=== PATIENT | female | born 1995 | race Caucasian/White ===

== ENCOUNTER 2017-09-05 17:41 | Emergency (ER) | payer OTHER, SELFPAY, MEDICAID ==
[2017-09-05] MEDS: FLUORESCEIN OPHTH 1 MG STRIP OS ×2 (18:15)
[2017-09-05] MEDS: TETRACAINE 0.5% OPHTH SOLN 4ML OS ×2 (18:30)
[2017-09-05] MEDS: ERYTHROMYCIN OPHTH OINT OS ×2 (19:15)
== END 2017-09-05 19:24 | disposition home or self-care (01) ==
LOC: M ED 17:41
DX: T55.1X1A Toxic effect of detergents, accidental (unintentional), initial encounter (principal); H10.212 Acute toxic conjunctivitis, left eye; F17.200 Nicotine dependence, unspecified, uncomplicated; Y92.098 Other place in other non-institutional residence as the place of occurrence of the external cause; Z91.018 Allergy to other foods; Z91.010 Allergy to peanuts; Z88.2 Allergy status to sulfonamides; Z88.8 Allergy status to other drugs, medicaments and biological substances
CPT/HCPCS: 99283

== ENCOUNTER 2017-09-16 18:44 | Emergency (ER) | payer OTHER ==
[2017-09-16] MEDS: KETOROLAC 60 MG/2 ML VIAL (J1885) IM (22:15)
== END 2017-09-16 22:51 | disposition home or self-care (01) ==
LOC: M ED 18:44
DX: S73.102A Unspecified sprain of left hip, initial encounter (principal); X50.0XXA Overexertion from strenuous movement or load, initial encounter; Y92.410 Unspecified street and highway as the place of occurrence of the external cause; F41.9 Anxiety disorder, unspecified; F33.9 Major depressive disorder, recurrent, unspecified; Z88.2 Allergy status to sulfonamides; Z88.8 Allergy status to other drugs, medicaments and biological substances; F17.210 Nicotine dependence, cigarettes, uncomplicated
CPT/HCPCS: J1885

== ENCOUNTER 2017-11-05 16:15 | Emergency (ER) | payer OTHER ==
[2017-11-05] MEDS: PANTOPRAZOLE 40MG INJ (PROTONIX) (C9113) IV (15:30)
[2017-11-05] MEDS: NS 1,000 ML IV (15:30)
[2017-11-05] MEDS: hydrOXYzine 50 MG TAB PO (17:20)
== END 2017-11-05 19:39 | disposition home or self-care (01) ==
LOC: M ED 16:15
DX: R22.0 Localized swelling, mass and lump, head (principal); T78.40XA Allergy, unspecified, initial encounter; Z91.018 Allergy to other foods; Z88.1 Allergy status to other antibiotic agents; Z88.2 Allergy status to sulfonamides; Z91.010 Allergy to peanuts; Z88.8 Allergy status to other drugs, medicaments and biological substances
CPT/HCPCS: C9113

== ENCOUNTER → 2017-11-11 | Outpatient (CLI) | payer OTHER ==
[2017-11-11 18:11] LABS: COMPLEMENT C3 114 MG/DL (90-180); COMPLEMENT C4 22.6 MG/DL (10-40); IMMUNOGLOBULIN G 818 MG/DL (681-1648); IMMUNOGLOBULIN M 86.9 MG/DL (40-230)
[2017-11-17 08:06] LABS: D001-IgE D pteronyssinus 4.69 kU/L (Class IV); E001-IgE Cat Epith/Dander 0.47 kU/L (Class I); E005-IgE Dog Dander 2.11 kU/L (Class III); F002-IgE Milk 0.11 kU/L (Class 0/I); F004-IgE Wheat 0.12 kU/L (Class 0/I); F013-IgE Peanut < 0.10 kU/L (Class 0); F014-IgE Soybean < 0.10 kU/L (Class 0); F026-IgE Pork < 0.10 kU/L (Class 0); F027-IgE Beef 0.15 kU/L (Class 0/I); F245-IgE Egg, Whole < 0.10 kU/L (Class 0); FX02-IgE Food Mix (Sea Foods) Negative (.); G002-IgE Bermuda Grass < 0.10 kU/L (Class 0); G008-IgE Kentucky Bluegrass < 0.10 kU/L (Class 0); M001-IgE Penicillium chrysogen 0.15 kU/L (Class 0/I); M002 IgE Cladosporium herbaru < 0.10 kU/L (Class 0); M003 IgE Aspergillus fumigatu 0.23 kU/L (Class 0/I); M006-IgE Alternaria alternata < 0.10 kU/L (Class 0); T001-IgE Maple/Box Elder < 0.10 kU/L (Class 0); T003-IgE Common Silver Birch < 0.10 kU/L (Class 0); T007-IgE Oak, White < 0.10 kU/L (Class 0); T008-IgE Elm, American < 0.10 kU/L (Class 0); T015-IgE Ash, White < 0.10 kU/L (Class 0); T041-IgE Hickory, White 0.19 kU/L (Class 0/I); T070-IgE White Mulberry < 0.10 kU/L (Class 0); W001-IgE Ragweed, Short < 0.10 kU/L (Class 0); W009-IgE Plantain, English 0.13 kU/L (Class 0/I); W014-IgE Pigweed, Rough < 0.10 kU/L (Class 0); W018-IgE Sheep Sorrel < 0.10 kU/L (Class 0)
[2017-11-17 08:06] LABS: ALPHA 1 ANTITRYPSIN 139 mg/dL (90-200)
== END ==
LOC: M LAB 16:46
DX: L50.8 Other urticaria (principal)
CPT/HCPCS: 82785

== ENCOUNTER → 2017-12-18 | Outpatient (CLI) | payer OTHER | LOC: M WUC 17:53 | DX: S60.221A Contusion of right hand, initial encounter (principal); X58.XXXA Exposure to other specified factors, initial encounter; Y92.9 Unspecified place or not applicable; Z87.81 Personal history of (healed) traumatic fracture | CPT/HCPCS: 73130 ==

== ENCOUNTER 2018-10-12 21:25 | Emergency (ER) | payer OTHER ==
[~2018-10-12] VITALS: Ht 172.7 cm; Wt 136.4 kg
[2018-10-12 21:25] VITALS: BP 141/91
[~2018-10-12 21:25] MED LIST: DICL75TA PO; ERYT1OIN26 OS; HYDR50TA70 PO; OMEP10CASR PO; PRED20TA PO
[2018-10-12] MEDS ORDERED: VENTAER INH (21:37)
--- NOTE | 2018-10-13 01:34 | REP ---
Clinical: Trauma with decreased range of motion . Technique: Internal rotation, external rotation, and Y view right shoulder . Findings: No acute fracture or dislocation. The acromioclavicular and glenohumeral joints are intact. No periarticular calcifications or degenerative changes are appreciated. Sub acromial space is normal. Surrounding soft tissues are unremarkable. Impression: Normal right shoulder radiographs. Electronically Signed by Phi Kerr MD 10/13/2018 01:25 A
== END 2018-10-13 00:21 | disposition left against medical advice (07) ==
LOC: M ED 21:25
DX: S49.91XA Unspecified injury of right shoulder and upper arm, initial encounter (principal); X58.XXXA Exposure to other specified factors, initial encounter; Y92.9 Unspecified place or not applicable; Y93.9 Activity, unspecified; Y99.9 Unspecified external cause status; Z53.21 Procedure and treatment not carried out due to patient leaving prior to being seen by health care provider

== ENCOUNTER 2018-10-20 18:48 | Emergency (ER) | payer OTHER ==
[~2018-10-20] VITALS: Ht 172.7 cm; Wt 134.0 kg
[~2018-10-20 18:48] MED LIST changes: +VENTAER INH
[2018-10-20 18:49] VITALS: BP 150/77
[2018-10-20] MEDS ORDERED: PRED20TA (19:02)
[2018-10-20] MEDS ORDERED: hydrOXYzine 25 MG TAB PO STA (19:30)
[2018-10-20] MEDS ORDERED: FAMOTIDINE 20 MG TAB PO ONE ×2 (19:30→20:30)
[2018-10-20] MEDS ORDERED: hydrOXYzine 50 MG TAB PO STA (20:27)
[2018-10-20] MEDS ORDERED: PEPC1TAB5 PO (20:29)
[2018-10-20] MEDS ORDERED: PRED10TA2 PO (20:30)
[2018-10-20] MEDS ORDERED: HYDR-3363 PO (20:32)
== END 2018-10-20 20:47 | disposition home or self-care (01) ==
LOC: M ED 18:48
DX: T78.40XA Allergy, unspecified, initial encounter (principal); Y92.9 Unspecified place or not applicable; Y93.9 Activity, unspecified; F41.9 Anxiety disorder, unspecified; F32.9 Major depressive disorder, single episode, unspecified; Z79.899 Other long term (current) drug therapy; Z88.6 Allergy status to analgesic agent; Z88.2 Allergy status to sulfonamides; Z88.8 Allergy status to other drugs, medicaments and biological substances; Z91.018 Allergy to other foods; Z91.010 Allergy to peanuts

== ENCOUNTER 2018-12-16 04:51 | Emergency (ER) | payer OTHER ==
[~2018-12-16] VITALS: Ht 175.3 cm; Wt 131.8 kg
[~2018-12-16 04:51] MED LIST changes: +HYDR-3363 PO; +PEPC1TAB5 PO; +PRED10TA2 PO; +PRED20TA
[2018-12-16] MEDS ORDERED: PROMETHAZINE INJ 25 MG/ML VIAL (J2550) IM ONE (05:15)
[2018-12-16 07:45] VITALS: BP 115/57
== END 2018-12-16 08:01 | disposition home or self-care (01) ==
LOC: EDBD 04:51 → M ED 04:51
DX: F10.10 Alcohol abuse, uncomplicated (principal); J45.909 Unspecified asthma, uncomplicated; F19.10 Other psychoactive substance abuse, uncomplicated; E66.9 Obesity, unspecified; Z88.1 Allergy status to other antibiotic agents; Z88.2 Allergy status to sulfonamides; Z88.8 Allergy status to other drugs, medicaments and biological substances; Z91.010 Allergy to peanuts; Z91.018 Allergy to other foods

== ENCOUNTER 2019-01-22 21:03 | Emergency (ER) | payer OTHER ==
[~2019-01-22] VITALS: Ht 175.3 cm; Wt 136.4 kg
[2019-01-22 21:37] LABS: HEMATOCRIT 46.2 % (36.0-47.0); HEMOGLOBIN 15.4 g/dl (12.0-15.5); MEAN CORPUSCULAR HEMOGLOBIN 31.8 pg (27.0-33.0); MEAN CORPUSCULAR HGB CONC 33.3 g/dl (32.0-36.5); MEAN CORPUSCULAR VOLUME 95.3 fl (80.0-96.0); PLATELET COUNT, AUTOMATED 229 10^3/uL (150-450); RED BLOOD COUNT 4.85 10^6/uL (4.00-5.40)
[2019-01-22 21:50] LABS: HCG, SERUM QUALITATIVE NEGATIVE (NEGATIVE)
[2019-01-22 21:59] LABS: ALBUMIN 3.6 GM/DL (3.2-5.2); ALT/SGPT 22 U/L (12-78); BILIRUBIN,DIRECT 0.2 MG/DL (0.0-0.2); BILIRUBIN,TOTAL 0.8 MG/DL (0.2-1.0); BLOOD UREA NITROGEN 11 MG/DL (7-18); CARBON DIOXIDE LEVEL 26 MEQ/L (21-32); CHLORIDE LEVEL 107 MEQ/L (98-107); GLOMERULAR FILTRATION RATE > 60.0 (>60); GLUCOSE, FASTING 116 MG/DL (70-100); LIPASE 169 U/L (73-393); POTASSIUM SERUM 3.9 MEQ/L (3.5-5.1); SODIUM LEVEL 141 MEQ/L (136-145); TOTAL PROTEIN 6.9 GM/DL (6.4-8.2)
[2019-01-22 22:10] LABS: BASOPHILS 1 % (0-4); EOSINOPHILS 2 % (0-5); LYMPHOCYTES 37 % (16-52); MONOCYTES 8 % (0-8); NEUTROPHILS 52 % (35-75); PLATELET ESTIMATE NORMAL (NORMAL)
[2019-01-23 00:35] LABS: CHLAMYDIA DNA AMPLIFICATION NEGATIVE (NEGATIVE); GC DNA AMPLIFICATION NEGATIVE (NEGATIVE)
[2019-01-23] MEDS ORDERED: 3 DA2CRE PV (01:11)
[2019-01-23] MEDS ORDERED: ACID1CAP5 PO (01:12)
[2019-01-23 01:20] VITALS: BP 142/85
== END 2019-01-23 01:21 | disposition home or self-care (01) ==
LOC: M ED 21:03
DX: B37.3 Candidiasis of vulva and vagina (principal); Z72.0 Tobacco use; Z88.8 Allergy status to other drugs, medicaments and biological substances; Z88.6 Allergy status to analgesic agent; Z88.2 Allergy status to sulfonamides; Z88.1 Allergy status to other antibiotic agents; Z91.010 Allergy to peanuts; Z91.018 Allergy to other foods

== ENCOUNTER 2019-02-14 02:29 | Emergency (ER) | payer OTHER ==
[~2019-02-14 02:29] MED LIST changes: +3 DA2CRE PV; +ACID1CAP5 PO
[2019-02-14 02:46] VITALS: BP 123/73
== END 2019-02-14 03:35 | disposition home or self-care (01) ==
LOC: M ED 02:29
DX: F10.129 Alcohol abuse with intoxication, unspecified (principal); Z72.0 Tobacco use; Z88.6 Allergy status to analgesic agent; Z88.2 Allergy status to sulfonamides; Z88.0 Allergy status to penicillin; Z88.8 Allergy status to other drugs, medicaments and biological substances; Z91.010 Allergy to peanuts; Z91.018 Allergy to other foods

== ENCOUNTER 2019-03-13 01:40 | Emergency (ER) | payer OTHER ==
[2019-03-13 04:24] LABS: BLOOD UREA NITROGEN 7 MG/DL (7-18); CALCIUM LEVEL 8.5 MG/DL (8.5-10.1); CARBON DIOXIDE LEVEL 22 MEQ/L (21-32); CHLORIDE LEVEL 112 MEQ/L (98-107); CREATININE FOR GFR 0.71 MG/DL (0.55-1.30); ETHYL ALCOHOL (ETHANOL) 0.106 % (0.000-0.010); GLOMERULAR FILTRATION RATE > 60.0 (>60); GLUCOSE, FASTING 109 MG/DL (70-100); POTASSIUM SERUM 3.7 MEQ/L (3.5-5.1); SODIUM LEVEL 144 MEQ/L (136-145)
[2019-03-13 04:54] VITALS: BP 98/50
== END 2019-03-13 04:56 | disposition home or self-care (01) ==
LOC: M ED 01:40
DX: F10.120 Alcohol abuse with intoxication, uncomplicated (principal); F41.9 Anxiety disorder, unspecified; Z88.2 Allergy status to sulfonamides; Z88.8 Allergy status to other drugs, medicaments and biological substances; Z88.6 Allergy status to analgesic agent; Z88.1 Allergy status to other antibiotic agents; Z91.010 Allergy to peanuts; Z91.018 Allergy to other foods
CPT/HCPCS: 36415; 80048; 99284; G0480

== ENCOUNTER → 2019-03-15 | Outpatient (CLI) | payer OTHER ==
--- NOTE | 2019-03-15 12:34 | REP ---
LEFT HAND SERIES: Four views. HISTORY: Pain. FINDINGS: Four views of the left hand demonstrate overall normal mineralization. Joint spaces are preserved. No erosive changes seen. Soft tissues are unremarkable. IMPRESSION: Negative left hand radiographs. Electronically Signed by Rebel Zepeda MD 03/15/2019 01:06 P
== END ==
LOC: M WUC 10:14
PROVIDERS: ATTEND Physician Assistant
DX: M79.642 Pain in left hand (principal)

== ENCOUNTER → 2019-04-05 | Outpatient (REF) | payer OTHER ==
[2019-04-05 21:10] LABS: CHLAMYDIA DNA AMPLIFICATION NEGATIVE (NEGATIVE); GC DNA AMPLIFICATION NEGATIVE (NEGATIVE)
== END ==
LOC: M SFHCWAGY 17:21
PROVIDERS: ATTEND Nurse Practitioner Women's Health
DX: Z11.3 Encounter for screening for infections with a predominantly sexual mode of transmission (principal)

== ENCOUNTER 2019-05-30 23:45 | Emergency (ER) | payer OTHER ==
[~2019-05-30] VITALS: Ht 177.8 cm; Wt 131.8 kg
[2019-05-30 23:48] VITALS: BP 126/92
[2019-05-30] MEDS ORDERED: HYDR-3363 (23:55)
== END 2019-05-31 00:48 | disposition left against medical advice (07) ==
LOC: M ED 23:45
DX: Z53.21 Procedure and treatment not carried out due to patient leaving prior to being seen by health care provider (principal)

== ENCOUNTER → 2019-11-03 | Outpatient (REF) | payer OTHER ==
[~2019-11-03] MED LIST changes: +HYDR-3363
[2019-11-03 21:30] LABS: CHLAMYDIA DNA AMPLIFICATION NEGATIVE (NEGATIVE); GC DNA AMPLIFICATION NEGATIVE (NEGATIVE)
== END ==
LOC: M SFHCWAGY 17:32
PROVIDERS: ATTEND Nurse Practitioner Women's Health
DX: Z11.3 Encounter for screening for infections with a predominantly sexual mode of transmission (principal)

== ENCOUNTER 2019-11-22 06:04 | Emergency (ER) | payer MEDICAID, OTHER ==
[~2019-11-22] VITALS: Ht 172.7 cm; Wt 143.2 kg
[~2019-11-22 06:04] MED LIST changes: -ERYT1OIN26 OS; +ERYT5OIN25 OS
[2019-11-22] MEDS ORDERED: NS 1,000 ML IV ONE (07:15)
[2019-11-22] MEDS ORDERED: ONDANSETRON 4MG/2ML VIAL IV ONE (07:15)
[2019-11-22 07:59] LABS: BASO # 0.1 10^3/uL (0.0-0.2); BASO % 0.5 % (0.0-1.0); EOS # 0.2 10^3/uL (0.0-0.5); EOS % 1.9 % (0.0-3.0); HEMATOCRIT 47.6 % (36.0-47.0); HEMOGLOBIN 16.2 g/dl (12.0-15.5); LYMPH # 4.5 10^3/uL (1.5-5.0); LYMPH % 35.9 % (24.0-44.0); MEAN CORPUSCULAR HEMOGLOBIN 32.1 pg (27.0-33.0); MEAN CORPUSCULAR VOLUME 94.4 fl (80.0-96.0); MONO # 0.6 10^3/uL (0.0-0.8); MONO % 4.6 % (0.0-5.0); NEUTROPHILS # 7.1 10^3/uL (1.5-8.5); NEUTROPHILS % 56.8 % (36.0-66.0); PLATELET COUNT, AUTOMATED 265 10^3/uL (150-450); RED BLOOD COUNT 5.04 10^6/uL (4.00-5.40); WHITE BLOOD COUNT 12.5 10^3/uL (4.0-10.0)
[2019-11-22] MEDS ORDERED: METOCLOPRAMIDE INJ 10MG/2ML VIAL (J2765 PER 1) IV ONE (08:15)
[2019-11-22 08:40] LABS: ALBUMIN 3.6 GM/DL (3.2-5.2); ALT/SGPT 31 U/L (12-78); BILIRUBIN,DIRECT 0.2 MG/DL (0.0-0.2); BILIRUBIN,TOTAL 0.6 MG/DL (0.2-1.0); BLOOD UREA NITROGEN 9 MG/DL (7-18); CALCIUM LEVEL 8.8 MG/DL (8.5-10.1); CARBON DIOXIDE LEVEL 25 MEQ/L (21-32); CHLORIDE LEVEL 110 MEQ/L (98-107); CREATININE FOR GFR 0.82 MG/DL (0.55-1.30); ETHYL ALCOHOL (ETHANOL) 0.189 % (0.000-0.010); GLOMERULAR FILTRATION RATE > 60.0 (>60); GLUCOSE, FASTING 114 MG/DL (70-100); LIPASE 83 U/L (73-393); POTASSIUM SERUM 3.9 MEQ/L (3.5-5.1); SODIUM LEVEL 143 MEQ/L (136-145); TOTAL PROTEIN 7.3 GM/DL (6.4-8.2)
[2019-11-22] MEDS ORDERED: AMMONIA AROMATIC INHALANT As Ordered ONE (08:41)
[2019-11-22] MEDS ORDERED: ISOVUE-370 76% 100ML VIAL As Ordered ONE (08:53)
[2019-11-22 09:40] LABS: AMPHETAMINES LEVEL URINE NEGATIVE (NEGATIVE); BARBITURATES URINE NEGATIVE (NEGATIVE); BENZODIAZEPINES URINE NEGATIVE (NEGATIVE); CANNABINOIDS URINE NEGATIVE (NEGATIVE); COCAINE METABOLITE URINE NEGATIVE (NEGATIVE); METHADONE URINE NEGATIVE (NEGATIVE); OPIATES URINE NEGATIVE (NEGATIVE); PHENCYCLIDINE URINE NEGATIVE (NEGATIVE)
--- NOTE | 2019-11-22 10:04 | REP ---
CT ABDOMEN AND PELVIS WITH IV CONTRAST: TECHNIQUE: Axial contrast enhanced images from the lung bases to the pubic symphysis using 100 mL Isovue-370 intravenous contrast material with multiplanar reformations. The visualized lung bases are clear. The liver, spleen, adrenals, pancreas and kidneys are unremarkable in appearance. Multiple gallstones are seen in a noninflamed gallbladder. There is no evidence of biliary dilatation. There is no abdominal aortic aneurysm. There is no adenopathy, free air or free fluid. No bowel wall thickening is seen. The appendix is normal. No pelvic mass is seen. Urinary bladder is not well distended and not well evaluated. IMPRESSION: Multiple gallstones seen in a noninflamed gallbladder. No acute findings. No free air or free fluid. Normal appendix. No abscess or bowel obstruction. Electronically Signed by Molina Garcia MD 11/22/2019 12:16 P
[2019-11-22 10:11] VITALS: BP 127/63
[2019-11-23] MEDS ORDERED: ALL10TAB29 PO (00:32)
[2019-11-23] MEDS ORDERED: PREVTAB2 PO (00:32)
[2019-11-23] MEDS ORDERED: OYST1TAB PO (00:32)
[2019-11-26] MEDS ORDERED: OXYC-517 PO (08:39)
== END 2019-11-22 10:21 | disposition home or self-care (01) ==
LOC: M ED 06:04
DX: M54.5 Low back pain (principal); K80.20 Calculus of gallbladder without cholecystitis without obstruction; F10.120 Alcohol abuse with intoxication, uncomplicated; R11.0 Nausea; F17.210 Nicotine dependence, cigarettes, uncomplicated
CPT/HCPCS: 74177; 80048; 80076; 80307; 83690; 84702; 85025; 96361; 96374; 99284; G0480; J2405; Q9967

== ENCOUNTER → 2019-12-14 | Outpatient (REF) | payer OTHER, MEDICAID ==
[~2019-12-14] MED LIST changes: +ALL10TAB29 PO; +OXYC-517 PO; +OYST1TAB PO; +PREVTAB2 PO
[2019-12-14 13:00] LABS: BASO % 0.4 % (0.0-1.0); EOS # 0.5 10^3/uL (0.0-0.5); EOS % 5.1 % (0.0-3.0); HEMATOCRIT 44.4 % (36.0-47.0); HEMOGLOBIN 14.8 g/dl (12.0-15.5); MEAN CORPUSCULAR HEMOGLOBIN 32.2 pg (27.0-33.0); MEAN CORPUSCULAR HGB CONC 33.3 g/dl (32.0-36.5); MEAN CORPUSCULAR VOLUME 96.5 fl (80.0-96.0); MONO # 0.7 10^3/uL (0.0-0.8); NEUTROPHILS # 3.8 10^3/uL (1.5-8.5); NEUTROPHILS % 42.3 % (36.0-66.0); PLATELET COUNT, AUTOMATED 211 10^3/uL (150-450)
[2019-12-14 13:14] LABS: ALBUMIN 3.5 GM/DL (3.2-5.2); ALT/SGPT 46 U/L (12-78); BILIRUBIN,TOTAL 0.9 MG/DL (0.2-1.0); BLOOD UREA NITROGEN 9 MG/DL (7-18); CALCIUM LEVEL 8.7 MG/DL (8.5-10.1); CARBON DIOXIDE LEVEL 27 MEQ/L (21-32); CHLORIDE LEVEL 109 MEQ/L (98-107); CHOLESTEROL LEVEL 166 MG/DL (<200); CHOLESTEROL RISK RATIO 3.952 (<5); CREATININE FOR GFR 0.95 MG/DL (0.55-1.30); FREE T4 0.96 NG/DL (0.76-1.46); GLOMERULAR FILTRATION RATE > 60.0 (>60); GLUCOSE, FASTING 86 MG/DL (70-100); HDL CHOLESTEROL 42 MG/DL (>40); LDL CHOLESTEROL 97 MG/DL (<100); NON-HDL-C 124 MG/DL; POTASSIUM SERUM 4.3 MEQ/L (3.5-5.1); SODIUM LEVEL 141 MEQ/L (136-145); TOTAL 25(OH) VITAMIN D 25.1 NG/ML (30.0-100.0); TOTAL PROTEIN 6.8 GM/DL (6.4-8.2); TRIGLYCERIDES LEVEL 134 MG/DL (<150)
== END ==
LOC: M LAB REF 12:18
PROVIDERS: ATTEND Physician Assistant
DX: Z90.49 Acquired absence of other specified parts of digestive tract (principal); F41.1 Generalized anxiety disorder; E55.9 Vitamin D deficiency, unspecified; E66.9 Obesity, unspecified; R73.9 Hyperglycemia, unspecified; K21.9 Gastro-esophageal reflux disease without esophagitis; J45.909 Unspecified asthma, uncomplicated

== ENCOUNTER 2020-01-23 03:19 | Emergency (ER) | payer MEDICAID, OTHER ==
[~2020-01-23] VITALS: Ht 172.7 cm; Wt 141.4 kg
[~2020-01-23 03:19] MED LIST changes: -ALL10TAB29 PO; +CETI-24 PO
[2020-01-23] MEDS ORDERED: methylPREDNISolone 125MG 2ML VIAL IM ONE (04:15)
[2020-01-23] MEDS ORDERED: GI COCKTAIL 50ML BTL(HYOSCYAMINE/MAALOX/LIDOCAINE VISCOUS)(1:3:1) PO ONE (04:15)
[2020-01-23 04:33] VITALS: BP 129/69
== END 2020-01-23 04:38 | disposition home or self-care (01) ==
LOC: M ED 03:19
DX: L50.9 Urticaria, unspecified (principal); K30 Functional dyspepsia; J45.909 Unspecified asthma, uncomplicated; F17.200 Nicotine dependence, unspecified, uncomplicated; Z88.2 Allergy status to sulfonamides; Z88.6 Allergy status to analgesic agent; Z88.1 Allergy status to other antibiotic agents; Z88.0 Allergy status to penicillin; Z88.8 Allergy status to other drugs, medicaments and biological substances; Z91.040 Latex allergy status; Z91.010 Allergy to peanuts; Z91.018 Allergy to other foods; Z79.899 Other long term (current) drug therapy
CPT/HCPCS: 96372; 99284; J2930

== ENCOUNTER → 2020-03-22 | Outpatient (REF) | payer OTHER ==
[~2020-03-22] MED LIST changes: +ESTA0.25 PO; +NEXP1IMP SC; +PROBCAP14 PO
== END ==
LOC: M WUC 12:33
PROVIDERS: ATTEND Physician Assistant
DX: J02.9 Acute pharyngitis, unspecified (principal)

== ENCOUNTER 2020-05-18 10:00 | Inpatient (IN) | payer OTHER ==
[~2020-05-18] VITALS: Ht 172.7 cm; Wt 137.3 kg
[~2020-05-18 10:00] MED LIST changes: -ESTA0.25 PO; -NEXP1IMP SC; -PROBCAP14 PO
[2020-05-18] MEDS ORDERED: PROBCAP14 PO (10:12)
[2020-05-18] MEDS ORDERED: NEXP1IMP SC (10:12)
[2020-05-18 11:32] LABS: BASO % 0.3 % (0.0-1.0); EOS # 0.3 10^3/uL (0.0-0.5); EOS % 2.5 % (0.0-3.0); HEMATOCRIT 48.1 % (36.0-47.0); HEMOGLOBIN 15.1 g/dl (12.0-15.5); LYMPH # 2.8 10^3/uL (1.5-5.0); LYMPH % 26.2 % (24.0-44.0); MEAN CORPUSCULAR HEMOGLOBIN 30.2 pg (27.0-33.0); MEAN CORPUSCULAR HGB CONC 31.4 g/dl (32.0-36.5); MEAN CORPUSCULAR VOLUME 96.2 fl (80.0-96.0); MONO # 0.7 10^3/uL (0.0-0.8); MONO % 6.7 % (0.0-5.0); NEUTROPHILS # 6.7 10^3/uL (1.5-8.5); PLATELET COUNT, AUTOMATED 246 10^3/uL (150-450); WHITE BLOOD COUNT 10.5 10^3/uL (4.0-10.0)
[2020-05-18] MEDS ORDERED: ISOVUE-370 76% 100ML VIAL As Ordered ONE (11:48)
--- NOTE | 2020-05-18 12:29 | REP ---
INDICATION: R upper cheek pain/swelling/dc after piercings. COMPARISON: None. TECHNIQUE: The patient was apparently unable to remove facial jewelry. Helical scanning is acquired following intravenous contrast, 75 mL of Isovue 370. An opaque BB is fixed to the skin at the superior margin of the area of interest in the right malar and periorbital region. FINDINGS: This patient has multiple sites of facial jewelry including right nares, lingual, bilateral lips jewelry and dermal posts are seen in the right male are soft tissues. There is spray artifact from jury in both ear pannus as well. 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 I believe this vessel is visible in retrospect on the prior MRI study from 2012. Otherwise there is no intracranial abnormality. The paranasal sinuses are clear. No intraorbital fluid collection or mass is seen. The deep facial soft tissues are unremarkable. Tonsillar and peritonsillar soft tissues are unremarkable. Parotid glands are normal and symmetric. There is a mildly prominent anterior cervical lymph node on the right measuring 1.4 by 1.4 by 2.3 cm. There is a lymph node at the angle of the mandible with cysts show 7 mm short axis dimension. In the region of the dermal post piercings in the right cheek at the level of the anterior margin of the right zygoma, there is subdermal soft tissue edema consistent with cellulitis. No abscess is appreciated. No soft tissue gas is seen. Exam is otherwise unremarkable IMPRESSION: 1. Cellulitis pattern around the dermal piercings in the right cheek at the level of the zygomatic arch. No abscess seen. 2. 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 <Electronically signed by Idris Zepeda > 05/18/20 [id number]
[2020-05-18] MEDS ORDERED: LIDOCAINE W/EPINEPHRINE 1% 20ML VIAL INFIL ONE (13:30)
[2020-05-18] MEDS ORDERED: HYDR-3363 PO (14:00)
[2020-05-18] MEDS ORDERED: CLINDAMYCIN 600 MG in IV 1 EA IV ONE (14:00)
[2020-05-18] MEDS ORDERED: ESTA0.25 PO (14:00)
[2020-05-18] MEDS ORDERED: ACETAMINOPHEN TAB 650MG DOSE (2X325MG) PO PRN (14:45)
--- NOTE | 2020-05-18 14:53 | HPEPDOC ---
General Date of Admission 05/18/20 Date of Service: May 18, 2020 Chief Complaint The patient is a 24-year-old female admitted with a reason for visit of Eye Problem. Source: Patient Exam Limitations: No limitations Timing/Duration: Day(s) Severity: Moderate History of Present Illness Patient 24 years old female with past medical history of posttraumatic stress disorder, borderline personality disorder presented hospital with right facial swelling. Patient stated that 3 days ago she started feeling swollen cheek there she has piercing. She stated that the swelling has been progressively increased and now when she moves her right eyeball she has a painful feeling. In ER CT head was done and showed Cellulitis pattern around the dermal piercing in the right cheek at the level of the zygomatic arch. No abscess seen. Home Medications Scheduled Calcium Carbonate (Calcium) 500 Mg Tablet, 500 MG PO DAILY, (Reported) Etonogestrel (Nexplanon) 68 Mg Implant, 68 MG SC ASDIRECTED, (Reported) INSERTED OCTOBER 2019 Hydroxyzine HCl (Hydroxyzine HCl) 25 Mg Tablet, 25 MG PO DAILY, (Reported) Lactobacillus Acidophilus (Probiotic) 1 Each Capsule, 1 CAP PO DAILY, (Reported) Norgestimate-Ethinyl Estradiol (Estarylla 0.25-0.035 mg Tablet) 1 Each Tablet, 1 TAB PO DAILY, (Reported) Allergies Coded Allergies: Peanut (Verified Allergy, Severe, anaphylaxis, 05/18/20) acetaminophen (Verified Allergy, Severe, HIVES AND THROAT SWELLING, 05/18/20) aspirin (Verified Allergy, Severe, anaphylaxis, 05/18/20) coconut (Verified Allergy, Severe, anaphylaxis, 05/18/20) NSAIDS (Non-Steroidal Anti-Inflamma (Verified Allergy, Intermediate, hives, 05/18/20) Sulfa (Sulfonamide Antibiotics) (Verified Allergy, Intermediate, hives, 05/18/20) diphenhydramine (Verified Allergy, Intermediate, hives, 05/18/20) latex (Verified Allergy, Intermediate, HIVES, 05/18/20) naproxen (Verified Allergy, Intermediate, hives, 05/18/20) amoxicillin (Verified Allergy, Unknown, 05/18/20) doxycycline (Verified Allergy, Unknown, 05/18/20) Past Medical History Medical History posttraumatic stress disorder, borderline personality disorder Surgical History Cholecystectomy Family History I personally reviewed family history and found not pertinent Social History * Smoker: current smoker Alcohol: Denies Drugs: denies A-FIB/CHADSVASC A-FIB History Current/History of A-Fib/PAF?: No Current PO Anticoag Therapy: No Review of Systems Constitutional: Denies: Chills Eyes: Reports: Pain; Denies: Vision change ENT: Denies: Head Aches Skin: Reports: Lesions (right cheek cellulitis); Denies: Rash Pulmonary: Denies: Dyspnea Cardiovascular: Denies: Chest Pain Gastrointestinal: Denies: Nausea Genitourinary: Denies: Dysuria, Frequency Hematologic: Denies: Bruising, Bleeding Excessively Endocrine: Denies: Polydipsia, Polyphagia Musculoskeletal: Denies: Neck Pain Neurological: Denies: Weakness Psych: Reports: Mood Normal Physical Examination General Exam: Positive: Alert, Cooperative Eye Exam: Positive: PERRLA ENT Exam: Positive: Atraumatic, Other ENT (Cellulitis over right zygomatic bone) Neck Exam: Positive: Supple; Negative: JVD Chest Exam: Positive: Clear to auscultation Heart Exam: Positive: Rate Normal Telemetry: Positive: No significant arrhythmia Abdomen Exam: Positive: Normal bowel sounds Extremity Exam: Negative: Clubbing, Cyanosis Skin Exam: Positive: Nl turgor and temperature Neuro Exam: Positive: Normal Gait Psych Exam: Positive: Mental status NL Vital Signs Vital Signs Date Time Temp Pulse Resp B/P (MAP) Pulse Ox O2 Delivery O2 Flow Rate FiO2 05/18/20 14:21 98.2 60 16 127/76 (93) 05/18/20 10:01 99 Room Air Laboratory Data Labs 24H Laboratory Tests 2 05/18/20 11:14: Immature Granulocyte % (Auto) 0.3, Neutrophils (%) (Auto) 64.0, Lymphocytes (%) (Auto) 26.2, Monocytes (%) (Auto) 6.7H, Eosinophils (%) (Auto) 2.5, Basophils (%) (Auto) 0.3, Neutrophils # (Auto) 6.7, Lymphocytes # (Auto) 2.8, Monocytes # (Auto) 0.7, Eosinophils # (Auto) 0.3, Basophils # (Auto) 0.0, Nucleated Red Blood Cells % (auto) 0.0 05/18/20 11:25: POC Glucose (Misc Panel) 84, POC Sodium (Misc Panel) 137, POC Potassium (Misc Panel) 4.3, POC Chloride (Misc Panel) 104, POC Total CO2 (Misc Panel) 27.0, POC Blood Urea Nitrogen (Misc Panel 8, POC Ionized Calcium (Misc Panel) 4.4L, POC Creatinine (Misc Panel) 1.0, POC Hematocrit (Misc Panel) 48.0 05/18/20 11:29: POC Beta HCG, Quantitative < 5.0 CBC/BMP Laboratory Tests 05/18/20 11:14 Microbiology Microbiology 05/18/20 Blood Culture, Received Pending 05/18/20 Blood Culture, Received Pending Assessment/Plan Patient 24 years old female with past medical history of posttraumatic stress disorder, borderline personality disorder presented hospital with right facial swelling. Patient stated that 3 days ago she started feeling swollen cheek there she has piercing. She stated that the swelling has been progressively increased and now when she moves her right eyeball she has a painful feeling. In ER CT head was done and showed Cellulitis pattern around the dermal piercing in the right cheek at the level of the zygomatic arch. No abscess seen. Problems (1) Cellulitis Status: Acute Problem Text: There is concern for orbital cellulitis given painful lateral movement of the eyeball. I talked to deportation officer Dr. Serra by phone, he recommended to monitor v isual acuity, pupillary reaction to light vestibular signs (problem with balance, dizziness, vertigo) or increased pain. If cellulitis progress and patient develop aforementioned symptoms patient will need urgent transfer to upper level facility Continue Clindamycin IV Plan / VTE VTE Prophylaxis Ordered?: No VTE Exclusion Mechanical Proph: Low Risk for VTE BRIGITTE GOTTLIEB DO May 18, 2020 14:53
[2020-05-18 18:10] VITALS: BP 130/80
[2020-05-18] MEDS: CLINDAMYCIN 600 MG in IV 1 EA IV SCH (21:24)
[2020-05-18 22:00] VITALS: BP 114/64
[2020-05-19] MEDS: CLINDAMYCIN 600 MG in IV 1 EA IV SCH ×3 (05:02→21:02)
[2020-05-19] MEDS ORDERED: ONDANSETRON 4MG/2ML VIAL IV PRN (05:15)
[2020-05-19] MEDS ORDERED: MORPHINE 2 MG/ML 1ML VIAL (J2270) IV ONE (05:15)
[2020-05-19 05:45] VITALS: BP 140/72
[2020-05-19 06:00] VITALS: BP 116/58
[2020-05-19] MEDS ORDERED: SIMETHICONE 80 MG CHEW TAB PO PRN (06:00)
[2020-05-19 07:20] LABS: HEMATOCRIT 44.5 % (36.0-47.0); HEMOGLOBIN 14.1 g/dl (12.0-15.5); MEAN CORPUSCULAR HEMOGLOBIN 30.1 pg (27.0-33.0); MEAN CORPUSCULAR HGB CONC 31.7 g/dl (32.0-36.5); MEAN CORPUSCULAR VOLUME 95.1 fl (80.0-96.0); PLATELET COUNT, AUTOMATED 242 10^3/uL (150-450); RED BLOOD COUNT 4.68 10^6/uL (4.00-5.40); WHITE BLOOD COUNT 14.1 10^3/uL (4.0-10.0)
[2020-05-19 07:40] LABS: BLOOD UREA NITROGEN 10 MG/DL (7-18); CALCIUM LEVEL 9.1 MG/DL (8.5-10.1); CARBON DIOXIDE LEVEL 23 MEQ/L (21-32); CHLORIDE LEVEL 108 MEQ/L (98-107); CREATININE FOR GFR 0.99 MG/DL (0.55-1.30); GLOMERULAR FILTRATION RATE > 60.0 (>60); GLUCOSE, FASTING 91 MG/DL (70-100); MAGNESIUM LEVEL 2.1 MG/DL (1.8-2.4); POTASSIUM SERUM 4.4 MEQ/L (3.5-5.1); SODIUM LEVEL 139 MEQ/L (136-145)
[2020-05-19] MEDS: hydrOXYzine 25 MG TAB PO SCH (09:22)
--- NOTE | 2020-05-19 09:41 | IPNPDOC ---
Text Note Date of Service The patient was seen on 05/19/20. NOTE Subjective: Patient stated that she feels better today, right facial swelling subsided. Objective: GENERAL APPEARANCE: NAD HEENT: no scleral icterus, no JVD, EOMI, multiple face piercing. Area of inflammation over the right zygomatic bone CARDIOVASCULAR: S1S2 LUNGS: CTA ABDOMEN: soft & not tender w palpitation MUSCULOSKELETAL: no cyanosis, no swelling INTEGUMENT: no generalized palor NEUROLOGICAL: cranial nerve function from 2-12 intact intact, follows commands, speech not dysarthric Assessment/Plan Patient 24 years old female with past medical history of posttraumatic stress disorder, borderline personality disorder presented hospital with right facial swelling. Patient stated that 3 days ago she started feeling swollen cheek there she has piercing. She stated that the swelling has been progressively increased and now when she moves her right eyeball she has a painful feeling. In ER CT head was done and showed Cellulitis pattern around the dermal piercing in the right cheek at the level of the zygomatic arch. No abscess seen. Problems (1) Cellulitis Improved painful lateral movement of the eyeball resolved Yesterday I talked to podiatrist Dr. Serra by phone, he recommended to monitor visual acuity, pupillary reaction to light vestibular signs (problem with balance, dizziness, vertigo) or increased pain. If cellulitis progress and patient develop aforementioned symptoms patient will need urgent transfer to upper level facility Continue Clindamycin IV VS,Fishbone, I+O VS, Fishbone, I+O Laboratory Tests 05/18/20 11:14 05/19/20 06:11 Vital Signs Date Time Temp Pulse Resp B/P (MAP) Pulse Ox O2 Delivery O2 Flow Rate FiO2 05/19/20 06:00 98.5 63 16 116/58 (77) 98 Room Air I&O- Last 24 Hours up to 6 AM 05/19/20 06:00 Intake Total 1600 ml Balance 1600 ml BRIGITTE GOTTLIEB DO May 19, 2020 09:40
[2020-05-19 15:00] VITALS: BP 112/70
[2020-05-19 22:00] VITALS: BP 133/63
[2020-05-20] MEDS: CLINDAMYCIN 600 MG in IV 1 EA IV SCH (05:24)
[2020-05-20 06:00] VITALS: BP 114/58
[2020-05-20 08:12] LABS: BASO % 0.3 % (0.0-1.0); EOS # 0.4 10^3/uL (0.0-0.5); EOS % 3.6 % (0.0-3.0); HEMATOCRIT 41.6 % (36.0-47.0); HEMOGLOBIN 13.2 g/dl (12.0-15.5); LYMPH # 3.8 10^3/uL (1.5-5.0); LYMPH % 38.8 % (24.0-44.0); MEAN CORPUSCULAR HEMOGLOBIN 30.6 pg (27.0-33.0); MEAN CORPUSCULAR HGB CONC 31.7 g/dl (32.0-36.5); MEAN CORPUSCULAR VOLUME 96.3 fl (80.0-96.0); MONO # 0.7 10^3/uL (0.0-0.8); MONO % 7.5 % (0.0-5.0); NEUTROPHILS # 4.9 10^3/uL (1.5-8.5); NEUTROPHILS % 49.6 % (36.0-66.0); PLATELET COUNT, AUTOMATED 195 10^3/uL (150-450); RED BLOOD COUNT 4.32 10^6/uL (4.00-5.40); WHITE BLOOD COUNT 9.8 10^3/uL (4.0-10.0)
[2020-05-20] MEDS: hydrOXYzine 25 MG TAB PO SCH (08:46)
[2020-05-20 10:06] LABS: BLOOD UREA NITROGEN 12 MG/DL (7-18); CALCIUM LEVEL 8.3 MG/DL (8.5-10.1); CARBON DIOXIDE LEVEL 24 MEQ/L (21-32); CHLORIDE LEVEL 111 MEQ/L (98-107); CREATININE FOR GFR 0.91 MG/DL (0.55-1.30); GLOMERULAR FILTRATION RATE > 60.0 (>60); GLUCOSE, FASTING 87 MG/DL (70-100); POTASSIUM SERUM 4.4 MEQ/L (3.5-5.1); SODIUM LEVEL 140 MEQ/L (136-145)
[2020-05-20] MEDS ORDERED: CLEO300C2 PO (11:06)
--- NOTE | 2020-05-20 11:23 | DS.PDOC ---
Discharge Summary General Date of Admission May 18, 2020 at 14:37 Date of Discharge 05/20/20 Discharge Summary PROCEDURES PERFORMED DURING STAY: [None]. DISCHARGE DIAGNOSES: Facial cellulitis related to piercing SECONDARY DIAGNOSIS: PTSD Borderline personality disorder COMPLICATIONS/CHIEF COMPLAINT: Cellulitis. HOSPITAL COURSE: Patient 24 years old female with past medical history of posttraumatic stress disorder, borderline personality disorder presented hospital with right facial swelling. Patient stated that 3 days prior to admission she started feeling swollen cheek where she has piercing. In ER CT head was done and showed Cellulitis pattern around the dermal piercing in the right cheek at the level of the zygomatic arch. No abscess seen. She was started on clindamycin. She responded well to the antibiotics with decrease in inflammation and swelling. The area around the piercings on the right zygomatic bone still a little inflamed and one of the piercings is embedded into the skin which will need to come out. Will refer to Plastic surgery for removal of the piercings. DISCHARGE MEDICATIONS: Please see below. ALLERGIES: Please see below. PHYSICAL EXAMINATION ON DISCHARGE: VITAL SIGNS: Please see below. GENERAL APPEARANCE: NAD HEENT: no scleral icterus, EOMI, multiple face piercing. Area of inflammation over the right zygomatic bone Neck: no JVD, CARDIOVASCULAR: S1S2 LUNGS: Clear to auscultation. ABDOMEN: soft & not tender with palpitation, normal bowel sounds Extremities: No edema. NEUROLOGICAL: cranial nerve function from 2-12 intact intact, No focal neurodeficits. LABORATORY DATA: Please see below. ACTIVITY: [As tolerated]. DIET: Regular DISCHARGE PLAN: Home DISCHARGE INSTRUCTIONS: Referral to Dr Chun Follow up with PMD in 1 week DISCHARGE CONDITION: [Stable]. TIME SPENT ON DISCHARGE: 35 minutes. Vital Signs/I&Os Vital Signs Date Time Temp Pulse Resp B/P (MAP) Pulse Ox O2 Delivery O2 Flow Rate FiO2 05/20/20 06:00 97.7 62 16 114/58 (76) 100 Room Air I&O- Last 24 Hours up to 6 AM 05/20/20 06:00 Intake Total 700 ml Balance 700 ml Laboratory Data Labs 24H Laboratory Tests 2 05/20/20 07:59: Immature Granulocyte % (Auto) 0.2, Neutrophils (%) (Auto) 49.6, Lymphocytes (%) (Auto) 38.8, Monocytes (%) (Auto) 7.5H, Eosinophils (%) (Auto) 3.6H, Basophils (%) (Auto) 0.3, Neutrophils # (Auto) 4.9, Lymphocytes # (Auto) 3.8, Monocytes # (Auto) 0.7, Eosinophils # (Auto) 0.4, Basophils # (Auto) 0.0, Nucleated Red Blood Cells % (auto) 0.0, Anion Gap 5L, Glomerular Filtration Rate > 60.0, Calcium Level 8.3L CBC/BMP Laboratory Tests 05/20/20 07:59 Microbiology Microbiology 05/18/20 Blood Culture - Preliminary, Resulted No growth after 24 hours . All specim... 05/18/20 Blood Culture - Preliminary, Resulted No growth after 24 hours . All specim... Discharge Medications Scheduled Calcium Carbonate (Calcium) 500 Mg Tablet, 500 MG PO DAILY, (Reported) Clindamycin Hcl (Cleocin HCl) 300 Mg Capsule, 300 MG PO QID Etonogestrel (Nexplanon) 68 Mg Implant, 68 MG SC ASDIRECTED, (Reported) INSERTED OCTOBER 2019 Hydroxyzine HCl (Hydroxyzine HCl) 25 Mg Tablet, 25 MG PO DAILY, (Reported) Lactobacillus Acidophilus (Probiotic) 1 Each Capsule, 1 CAP PO DAILY, (Reported) Norgestimate-Ethinyl Estradiol (Estarylla 0.25-0.035 mg Tablet) 1 Each Tablet, 1 TAB PO DAILY, (Reported) Allergies Coded Allergies: Peanut (Verified Allergy, Severe, anaphylaxis, 05/18/20) acetaminophen (Verified Allergy, Severe, HIVES AND THROAT SWELLING, 05/18/20) aspirin (Verified Allergy, Severe, anaphylaxis, 05/18/20) coconut (Verified Allergy, Severe, anaphylaxis, 05/18/20) NSAIDS (Non-Steroidal Anti-Inflamma (Verified Allergy, Intermediate, hives, 05/18/20) Sulfa (Sulfonamide Antibiotics) (Verified Allergy, Intermediate, hives, 05/18/20) diphenhydramine (Verified Allergy, Intermediate, hives, 05/18/20) latex (Verified Allergy, Intermediate, HIVES, 05/18/20) naproxen (Verified Allergy, Intermediate, hives, 05/18/20) amoxicillin (Verified Allergy, Unknown, 05/18/20) doxycycline (Verified Allergy, Unknown, 05/18/20) ELA CANO MD May 20, 2020 11:23
== END 2020-05-20 12:37 | disposition home or self-care (01) | DRG 383 ==
LOC: M ED 10:00 → M ED INP 14:37 → ENRESERV 15:09 → M MSPAV 18:13
PROVIDERS: ADMIT Internal Medicine; ATTEND Internal Medicine Nephrology
DX: L03.211 Cellulitis of face (principal); F60.3 Borderline personality disorder; F43.10 Post-traumatic stress disorder, unspecified; F17.200 Nicotine dependence, unspecified, uncomplicated; Z79.899 Other long term (current) drug therapy; Z88.1 Allergy status to other antibiotic agents; Z88.0 Allergy status to penicillin; Z88.2 Allergy status to sulfonamides; Z88.6 Allergy status to analgesic agent; Z88.8 Allergy status to other drugs, medicaments and biological substances; Z91.040 Latex allergy status; Z91.010 Allergy to peanuts; Z91.018 Allergy to other foods; Z20.828 Contact with and (suspected) exposure to other viral communicable diseases

== ENCOUNTER → 2020-06-02 | Outpatient (CLI) | payer OTHER ==
[~2020-06-02] MED LIST changes: +CLEO300C2 PO; +CLIN150C14 PO; +DIFL150T PO; +ESTA0.25 PO; +NEXP1IMP SC; +PROBCAP14 PO
== END ==
LOC: M LABSMTC 09:03
PROVIDERS: ATTEND Anesthesiology
DX: Z01.812 Encounter for preprocedural laboratory examination (principal); Z20.828 Contact with and (suspected) exposure to other viral communicable diseases

== ENCOUNTER 2020-06-05 06:15 | Day surgery (SDC) | payer OTHER ==
[~2020-06-05] VITALS: Ht 172.7 cm; Wt 140.6 kg
[~2020-06-05 06:15] MED LIST changes: -CLIN150C14 PO; -DIFL150T PO
[2020-06-05 06:51] LABS: HEMOGLOBIN 13.5 g/dl (12.0-15.5); MEAN CORPUSCULAR HEMOGLOBIN 30.1 pg (27.0-33.0); MEAN CORPUSCULAR HGB CONC 31.4 g/dl (32.0-36.5); MEAN CORPUSCULAR VOLUME 95.8 fl (80.0-96.0); PLATELET COUNT, AUTOMATED 206 10^3/uL (150-450); RED BLOOD COUNT 4.49 10^6/uL (4.00-5.40); WHITE BLOOD COUNT 9.9 10^3/uL (4.0-10.0)
[2020-06-05] MEDS ORDERED: CIPROFLOXACIN 400 MG in IV 1 EA IV ONE (07:00)
[2020-06-05] MEDS ORDERED: LR 1,000 ML IV ONE (07:00)
[2020-06-05] MEDS ORDERED: POVIDONE-IODINE 5% OPHTH PREP SOL 30ML As Ordered ONE (07:17)
[2020-06-05] MEDS ORDERED: POLYSPORIN OPHTH OINT 3.5 GM As Ordered ONE (07:19)
[2020-06-05] MEDS ORDERED: CLINDAMYCIN 600 MG/50 ML PREMIX BAG As Ordered ONE (07:20)
[2020-06-05] MEDS ORDERED: propofoL 200 MG/20 ML VIAL As Ordered ONE (07:20)
[2020-06-05] MEDS ORDERED: LIDOCAINE 2% 100MG/5ML SDV (FOR ANES.) As Ordered ONE (07:20)
[2020-06-05] MEDS ORDERED: ONDANSETRON 4MG/2ML VIAL As Ordered ONE (07:20)
[2020-06-05] MEDS ORDERED: fentaNYL 100 MCG/2 ML INJECTION (J3010) As Ordered ONE ×2 (07:21→07:54)
[2020-06-05] MEDS ORDERED: MIDAZOLAM INJ 2MG/2ML VIAL (J2250 PER 1MG) As Ordered ONE (07:21)
[2020-06-05] MEDS ORDERED: dexameTHASONE 4 MG/ML 1ML VIAL (J1100 PER 1MG) As Ordered ONE (07:21)
[2020-06-05] MEDS ORDERED: LIDOCAINE 2% W/EPINEPHRINE 20ML VIAL **PRES FREE As Ordered ONE (07:24)
[2020-06-05] MEDS ORDERED: CLINDAMYCIN 600 MG in IV 1 EA IV ONE (07:30)
[2020-06-05] MEDS ORDERED: METOCLOPRAMIDE INJ 10MG/2ML VIAL (J2765 PER 1) As Ordered ONE (08:21)
--- NOTE | 2020-06-05 08:24 | POST-OPPD ---
Postoperative Procedure Note Date Of Procedure: Jun 05, 2020 PREOPERATIVE DIAGNOSIS: Right cheek foreign body POSTOPERATIVE DIAGNOSIS: same FINDINGS: two adjoint body piercing PROCEDURE: Removal foreign body right cheek SURGEON: Dr Sibley DROP BOARD MAN: Dr Scruggs ANESTHESIA: General SPECIMENS: Foreign body ESTIMATED BLOOD LOSS: 1 cc REPLACED: none DRAINS: none COMPLICATIONS: none POSTOPERATIVE CONDITION: stable [id number] CYNDI SIBLEY DO Jun 05, 2020 08:24
[2020-06-05] MEDS ORDERED: CLIN150C14 PO (08:30)
--- NOTE | 2020-06-05 08:30 | REP ---
INDICATION: REMOVAL FOREIGN BODY, RIGHT CHEEK. COMPARISON: None. TECHNIQUE: Intraoperative fluoroscopic imaging using portable C-arm technique. FINDINGS: Spot fluoroscopic images of the face in AP and oblique views demonstrating endotracheal tube. No further obvious foreign body identified on current images. Total fluoroscopic time used 3.3 seconds. IMPRESSION: No significant metallic foreign body identified <Electronically signed by Phi Kerr > 06/05/20 [id number]
[2020-06-05] MEDS ORDERED: DIFL150T PO (08:34)
[2020-06-05] MEDS ORDERED: HYDROMORPHONE HCL 0.5 MG/ 0.5 ML SYRINGE (J1170 PER 1) IV PRN (09:00)
[2020-06-05] MEDS ORDERED: fentaNYL 100 MCG/2 ML INJECTION (J3010) IV PRN (09:00)
[2020-06-05] MEDS ORDERED: oxyCODONE 5MG TAB PO PRN (09:00)
[2020-06-05] MEDS ORDERED: ONDANSETRON 4MG/2ML VIAL IV PRN (09:00)
[2020-06-05] MEDS ORDERED: LR 1,000 ML IV SCH (09:00)
[2020-06-05 09:52] VITALS: BP 129/81
--- NOTE | 2020-06-06 14:22 | RO ---
OPERATIVE NOTE DATE OF OPERATION: 06/05/2020 PREOPERATIVE DIAGNOSIS: Right cheek foreign body. POSTOPERATIVE DIAGNOSIS: Right cheek foreign body. FINDINGS: Two adjacent adjoined by the piercings. PROCEDURE: Removal of foreign body right cheek. ATTENDING SURGEON: Gauri Chun DO DRIVER EDUCATION INSTRUCTOR: Dr. Scruggs ANESTHESIA: General. SPECIMEN SENT: Foreign body. BLOOD LOSS: 1 mL. No replacement. DRAINS: None. PROCEDURE: This is a 24-year-old female who had history of recent facial cellulitis due to her piercings that she has on her right cheek which are subdermally placed. The patient has completed her antibiotic course and she is markedly improved. There was no abscess. CT was previously done in the hospital. The patient was scheduled to remove her hardware. Risks and benefits and alternatives discussed with the patient in detail. She wishes to proceed. We identified previous x-rays, there are two plates under the skin which are catching on each other so we had C-arm present in the room. After general anesthesia was induced she was prepped and draped in usual sterile fashion. We made a small stab incision along the spot of her piercing and blunt dissection carried out, we were able to take out the metal footprint of the piercing and it was carefully removed from its location. We had to make a separate stab incision along the spot of the second foreign body piercing and the second footplate was removed through that small incision. Wound was irrigated with Bacitracin irrigation and edges approximated with 5-0 Monocryl sutures. We used C-arm to confirm that there was no residual foreign body was left in place. Bacitracin ointment and a Band-Aid were applied. The patient was extubated in the operating room without any difficulty and transferred to the recovery room in stable condition.
== END 2020-06-05 09:52 | disposition home or self-care (01) ==
LOC: M SDC 06:15
PROVIDERS: ATTEND Plastic Surgery Surgery of the Hand
DX: L03.211 Cellulitis of face (principal); S00.85XA Superficial foreign body of other part of head, initial encounter; K21.9 Gastro-esophageal reflux disease without esophagitis; F41.9 Anxiety disorder, unspecified; F17.218 Nicotine dependence, cigarettes, with other nicotine-induced disorders; Z79.899 Other long term (current) drug therapy; Z91.040 Latex allergy status; Z88.0 Allergy status to penicillin; Z88.2 Allergy status to sulfonamides; Z88.8 Allergy status to other drugs, medicaments and biological substances; Z91.018 Allergy to other foods; Z91.010 Allergy to peanuts; Y92.89 Other specified places as the place of occurrence of the external cause; Y93.9 Activity, unspecified
CPT/HCPCS: 10120; 36415; 76000; 81025; 85027; 88300; J1100; J2250; J2405; J2765; J3010

== ENCOUNTER → 2020-07-21 | Outpatient (REF) | payer OTHER ==
[~2020-07-21] MED LIST changes: +CLIN150C15 PO; +DIFL150T PO
== END ==
LOC: M LAB REF 16:45
PROVIDERS: ATTEND Physician Assistant
DX: J02.9 Acute pharyngitis, unspecified (principal)

== ENCOUNTER → 2020-07-23 | Outpatient (CLI) | payer SELFPAY | LOC: M LABSMTC 12:40 | PROVIDERS: ATTEND Pediatrics | DX: Z20.822 Contact with and (suspected) exposure to COVID-19 (principal) ==

== ENCOUNTER 2020-09-04 18:47 | Emergency (ER) | payer OTHER ==
[~2020-09-04] VITALS: Ht 170.2 cm; Wt 142.3 kg
[2020-09-04 18:48] VITALS: BP 142/88
== END 2020-09-04 19:41 | disposition home or self-care (01) ==
LOC: M ED 18:47
DX: M72.2 Plantar fascial fibromatosis (principal); J34.89 Other specified disorders of nose and nasal sinuses; K59.00 Constipation, unspecified; F17.200 Nicotine dependence, unspecified, uncomplicated; Z88.6 Allergy status to analgesic agent; Z91.010 Allergy to peanuts; Z88.1 Allergy status to other antibiotic agents; Z88.2 Allergy status to sulfonamides; Z91.018 Allergy to other foods

== ENCOUNTER → 2020-09-06 | Outpatient (CLI) | payer OTHER ==
--- NOTE | 2020-09-06 13:09 | REP ---
INDICATION: PAIN COMPARISON: None. TECHNIQUE: AP, lateral, bilateral oblique views left foot. FINDINGS: Moderate pes cavus is appreciated along with exaggerated extension at the metatarsophalangeal joints. There is no evidence for acute fracture or dislocation. No overt arthritic changes at the joint spaces noted.. IMPRESSION: Changes as described above. No acute fracture or dislocation. <Electronically signed by Phi Kerr > 09/06/20 [id number]
== END ==
LOC: M WUC 12:46
PROVIDERS: ATTEND Physician Assistant
DX: M79.672 Pain in left foot (principal)

== ENCOUNTER 2020-10-19 17:31 | Emergency (ER) | payer OTHER ==
[~2020-10-19] VITALS: Ht 172.7 cm; Wt 140.9 kg
[2020-10-19 18:35] LABS: BASO % 0.3 % (0.0-1.0); EOS # 0.2 10^3/uL (0.0-0.5); EOS % 1.8 % (0.0-3.0); HEMATOCRIT 46.4 % (36.0-47.0); HEMOGLOBIN 15.1 g/dl (12.0-15.5); LYMPH # 3.5 10^3/uL (1.5-5.0); MEAN CORPUSCULAR HEMOGLOBIN 31.3 pg (27.0-33.0); MEAN CORPUSCULAR HGB CONC 32.5 g/dl (32.0-36.5); MEAN CORPUSCULAR VOLUME 96.1 fl (80.0-96.0); MONO # 0.8 10^3/uL (0.0-0.8); MONO % 6.9 % (2.0-8.0); NEUTROPHILS # 7.1 10^3/uL (1.5-8.5); NEUTROPHILS % 60.6 % (36.0-66.0); PLATELET COUNT, AUTOMATED 232 10^3/uL (150-450); RED BLOOD COUNT 4.83 10^6/uL (4.00-5.40); WHITE BLOOD COUNT 11.7 10^3/uL (4.0-10.0)
[2020-10-19 18:54] LABS: INR 1.01; PROTHROMBIN TIME 13.5 SECONDS (12.5-14.3)
[2020-10-19 18:55] LABS: PARTIAL THROMBOPLASTIN TIME 24.9 SECONDS (24.2-38.5)
[2020-10-19 19:06] LABS: ALBUMIN 3.5 GM/DL (3.2-5.2); ALT/SGPT 28 U/L (12-78); BILIRUBIN,DIRECT 0.1 MG/DL (0.0-0.2); BILIRUBIN,TOTAL 0.5 MG/DL (0.2-1.0); BLOOD UREA NITROGEN 9 MG/DL (7-18); CALCIUM LEVEL 9.3 MG/DL (8.5-10.1); CARBON DIOXIDE LEVEL 27 MEQ/L (21-32); CHLORIDE LEVEL 106 MEQ/L (98-107); CREATININE FOR GFR 0.88 MG/DL (0.55-1.30); GLOMERULAR FILTRATION RATE > 60.0 (>60); GLUCOSE, FASTING 78 MG/DL (70-100); LIPASE 80 U/L (73-393); POTASSIUM SERUM 4.1 MEQ/L (3.5-5.1); SODIUM LEVEL 139 MEQ/L (136-145); TOTAL PROTEIN 7.2 GM/DL (6.4-8.2)
[2020-10-19 19:18] LABS: HCG, SERUM QUALITATIVE NEGATIVE (NEGATIVE)
[2020-10-19] MEDS ORDERED: ONDANSETRON 4MG/2ML VIAL IV ONE (19:55)
[2020-10-19] MEDS ORDERED: NS 1,000 ML IV ONE (19:55)
[2020-10-19] MEDS: MORPHINE 4 MG/ML 1ML VIAL/SYRINGE (J2270) IV ONE ×2 (20:06→20:18)
[2020-10-19] MEDS: GASTROGRAFIN SOLUTION 30ML PO SCH ×2 (20:56→21:47)
[2020-10-19] MEDS ORDERED: ISOVUE-370 76% 100ML VIAL As Ordered ONE (22:16)
--- NOTE | 2020-10-19 22:49 | REPVR ---
PROCEDURE INFORMATION: Exam: CT Abdomen And Pelvis With Contrast Exam date and time: 10/19/2020 10:22 PM Age: 25 years old Clinical indication: Abdominal pain; Localized; Right upper quadrant (ruq); Additional info: Ruq abd pain TECHNIQUE: Imaging protocol: Computed tomography of the abdomen and pelvis with contrast. Radiation optimization: All CT scans at this facility use at least one of these dose optimization techniques: automated exposure control; mA and/or kV adjustment per patient size (includes targeted exams where dose is matched to clinical indication); or iterative reconstruction. Contrast material: ISOVUE 370; Contrast volume: 100 ml; Contrast route: INTRAVENOUS (IV); COMPARISON: CT ABD/PEL W/IV CONTRAST ONLY 11/22/2019 8:49 AM FINDINGS: Lungs: Minimal right middle lobe fibro-atelectatic change. Liver: Normal. No mass. Gallbladder and bile ducts: Status post cholecystectomy. Pancreas: Normal. No ductal dilation. Spleen: Normal. No splenomegaly. Adrenal glands: Normal. No mass. Kidneys and ureters: Normal. No hydronephrosis. Stomach and bowel: Unremarkable. No obstruction. No mucosal thickening. Appendix: A normal appendix is seen. Intraperitoneal space: Unremarkable. No free air. No significant fluid collection. Vasculature: Unremarkable. No abdominal aortic aneurysm. Lymph nodes: Unremarkable. No enlarged lymph nodes. Urinary bladder: Unremarkable as visualized. Reproductive: Unremarkable as visualized. Bones/joints: Decreased height and/or wedge configuration of lower thoracic segments from T7-T11 which appear to be chronic. Soft tissues: Unremarkable. IMPRESSION: 1. Interval cholecystectomy since 11/22/2019. 2. Otherwise negative CT abdomen/pelvis which is otherwise stable since the prior study. Electronically signed by: Bam Ruelas On 10/19/2020 22:49:42 PM
[2020-10-20 00:14] VITALS: BP 120/60
== END 2020-10-20 00:21 | disposition home or self-care (01) ==
LOC: M ED 17:31
DX: R10.9 Unspecified abdominal pain (principal); R11.2 Nausea with vomiting, unspecified; R19.7 Diarrhea, unspecified; Z79.3 Long term (current) use of hormonal contraceptives; Z88.0 Allergy status to penicillin; Z88.1 Allergy status to other antibiotic agents; Z88.2 Allergy status to sulfonamides; Z88.8 Allergy status to other drugs, medicaments and biological substances; Z91.010 Allergy to peanuts; Z91.018 Allergy to other foods; Z91.040 Latex allergy status; F17.210 Nicotine dependence, cigarettes, uncomplicated
CPT/HCPCS: 74177; 80048; 80076; 83605; 83690; 84703; 85025; 85610; 85730; 93041; 96361; 96374; 99285; J2405; Q9963; Q9967

== ENCOUNTER 2021-03-19 16:30 | Emergency (ER) | payer MEDICAID, OTHER ==
[~2021-03-19] VITALS: Ht 172.7 cm; Wt 143.8 kg
[2021-03-19 16:30] VITALS: BP 147/86
[~2021-03-19 16:30] MED LIST changes: -CLIN150C15 PO; +CLIN150C17 PO
== END 2021-03-19 22:07 | disposition home or self-care (01) ==
LOC: M ED 16:30
DX: M72.2 Plantar fascial fibromatosis (principal); R51.9 Headache, unspecified; J45.909 Unspecified asthma, uncomplicated; G40.909 Epilepsy, unspecified, not intractable, without status epilepticus; K21.9 Gastro-esophageal reflux disease without esophagitis; Z79.3 Long term (current) use of hormonal contraceptives; Z88.0 Allergy status to penicillin; Z88.1 Allergy status to other antibiotic agents; Z88.2 Allergy status to sulfonamides; Z88.8 Allergy status to other drugs, medicaments and biological substances; Z91.018 Allergy to other foods; Z91.040 Latex allergy status

== ENCOUNTER → 2021-07-12 | Outpatient (REF) | payer OTHER ==
[2021-07-12 18:32] LABS: RSV AMPLIFICATION NEGATIVE (NEGATIVE)
== END ==
LOC: M LAB REF 16:35
PROVIDERS: ATTEND Physician Assistant
DX: R50.9 Fever, unspecified (principal); R05.9 Cough, unspecified

== ENCOUNTER → 2022-01-17 | Outpatient (CLI) | payer OTHER ==
[~2022-01-17] MED LIST changes: +ETON68IM SC; -NEXP1IMP SC
== END ==
LOC: M EKG 10:08
PROVIDERS: ATTEND Registered Nurse
DX: F41.1 Generalized anxiety disorder (principal)

== ENCOUNTER → 2022-03-01 | Outpatient (CLI) | payer OTHER ==
[~2022-03-01] MED LIST changes: +BUPR1TAB56; +PROM25TA12; +TRAZ-252
[2022-03-01 15:30] LABS: BASO % 0.4 % (0.0-1.0); EOS # 0.2 10^3/uL (0.0-0.5); EOS % 1.8 % (0.0-3.0); HEMATOCRIT 44.1 % (36.0-47.0); HEMOGLOBIN 14.2 g/dl (12.0-15.5); LYMPH # 3.4 10^3/uL (1.5-5.0); MEAN CORPUSCULAR HEMOGLOBIN 30.3 pg (27.0-33.0); MEAN CORPUSCULAR HGB CONC 32.2 g/dl (32.0-36.5); MEAN CORPUSCULAR VOLUME 94.2 fl (80.0-96.0); MONO # 0.8 10^3/uL (0.0-0.8); MONO % 7.6 % (2.0-8.0); NEUTROPHILS # 5.9 10^3/uL (1.5-8.5); NEUTROPHILS % 56.9 % (36.0-66.0); PLATELET COUNT, AUTOMATED 226 10^3/uL (150-450); RED BLOOD COUNT 4.68 10^6/uL (4.00-5.40); WHITE BLOOD COUNT 10.4 10^3/uL (4.0-10.0)
[2022-03-01 16:12] LABS: ALBUMIN 3.6 GM/DL (3.2-5.2); ALT/SGPT 27 U/L (12-78); BILIRUBIN,TOTAL 0.9 MG/DL (0.2-1.0); BLOOD UREA NITROGEN 7 MG/DL (7-18); CALCIUM LEVEL 9.2 MG/DL (8.5-10.1); CARBON DIOXIDE LEVEL 25 MEQ/L (21-32); CHLORIDE LEVEL 106 MEQ/L (98-107); CREATININE FOR GFR 0.92 MG/DL (0.55-1.30); GLOMERULAR FILTRATION RATE > 60.0 (>60); GLUCOSE, FASTING 85 MG/DL (70-100); LIPASE 86 U/L (73-393); POTASSIUM SERUM 4.2 MEQ/L (3.5-5.1); SODIUM LEVEL 136 MEQ/L (136-145); TOTAL PROTEIN 6.6 GM/DL (6.4-8.2)
== END ==
LOC: M LAB 14:54
PROVIDERS: ATTEND Physician Assistant
DX: R10.9 Unspecified abdominal pain (principal)

== ENCOUNTER 2022-03-04 14:41 | Emergency (ER) | payer OTHER ==
[~2022-03-04] VITALS: Ht 172.7 cm; Wt 156.9 kg
[2022-03-04 14:41] VITALS: BP 131/71
[~2022-03-04 14:41] MED LIST changes: -BUPR1TAB56; -PROM25TA12; -TRAZ-252
[2022-03-04] MEDS ORDERED: TRAZ-252 (14:47)
[2022-03-04] MEDS ORDERED: PROM25TA12 (14:47)
[2022-03-04] MEDS ORDERED: BUPR1TAB56 (14:47)
== END 2022-03-04 15:02 | disposition left against medical advice (07) ==
LOC: M ED 14:41
DX: Z53.21 Procedure and treatment not carried out due to patient leaving prior to being seen by health care provider (principal)

== ENCOUNTER → 2022-07-02 | Outpatient (CLI) | payer OTHER, MEDICAID ==
[~2022-07-02] MED LIST changes: +BUPR1TAB56; +PROM25TA12; +TRAZ-252
== END ==
LOC: M WUC 13:52
PROVIDERS: ATTEND Physician Assistant
DX: S83.421A Sprain of lateral collateral ligament of right knee, initial encounter (principal)

== ENCOUNTER → 2022-10-13 | Outpatient (REF) | payer OTHER ==
[2022-10-13 17:13] LABS: CHOLESTEROL RISK RATIO 4.37 (<5); HDL CHOLESTEROL 39.3 MG/DL (>40); LDL CHOLESTEROL 100.9 MG/DL (<100); NON-HDL-C 132.7 MG/DL
== END ==
LOC: M LAB REF 16:05
PROVIDERS: ATTEND Physician Assistant
DX: E55.9 Vitamin D deficiency, unspecified (principal); E78.5 Hyperlipidemia, unspecified; Z11.59 Encounter for screening for other viral diseases

== ENCOUNTER 2022-12-01 18:39 | Emergency (ER) | payer OTHER ==
[~2022-12-01] VITALS: Ht 172.7 cm; Wt 153.8 kg
[2022-12-01 18:40] VITALS: BP 129/73
[2022-12-01] MEDS ORDERED: HYDR50TA70 (18:47)
[2022-12-01] MEDS ORDERED: BUSP5TA (18:47)
[2022-12-01] MEDS ORDERED: CETI-24 (18:47)
[2022-12-01] MEDS ORDERED: TRAZ-257 (18:47)
== END 2022-12-01 20:54 | disposition home or self-care (01) ==
LOC: M ED 18:39
DX: S83.91XA Sprain of unspecified site of right knee, initial encounter (principal); X50.0XXA Overexertion from strenuous movement or load, initial encounter; Y92.89 Other specified places as the place of occurrence of the external cause; Y93.89 Activity, other specified; Y99.8 Other external cause status; F41.9 Anxiety disorder, unspecified; F60.3 Borderline personality disorder; F17.200 Nicotine dependence, unspecified, uncomplicated; Z88.5 Allergy status to narcotic agent; Z88.6 Allergy status to analgesic agent; Z88.0 Allergy status to penicillin; Z88.8 Allergy status to other drugs, medicaments and biological substances; Z88.1 Allergy status to other antibiotic agents; Z91.018 Allergy to other foods; Z91.010 Allergy to peanuts; Z79.899 Other long term (current) drug therapy

== ENCOUNTER → 2022-12-22 | Outpatient (CLI) | payer OTHER ==
[~2022-12-22] MED LIST changes: +BUSP5TA; +CETI-24; +HYDR50TA70; +TRAZ-257
[2022-12-22 16:47] LABS: HEMOGLOBIN A1c 4.8 % (4.0-6.0)
== END ==
LOC: M LAB 12:22
PROVIDERS: ATTEND Surgery
DX: Z86.39 Personal history of other endocrine, nutritional and metabolic disease (principal)

== ENCOUNTER 2023-02-28 02:41 | Emergency (ER) | payer OTHER ==
[2023-02-28] MEDS ORDERED: LORazepam 2 MG/ML 1ML VIAL IV STA (02:54)
[2023-02-28] MEDS ORDERED: NS 1,000 ML IV ONE (02:55)
[2023-02-28 03:20] LABS: BASO % 0.3 % (0.0-1.0); EOS # 0.1 10^3/uL (0.0-0.5); EOS % 0.8 % (0.0-3.0); HEMATOCRIT 43.1 % (36.0-47.0); HEMOGLOBIN 14.2 g/dl (12.0-15.5); LYMPH # 4.1 10^3/uL (1.5-5.0); LYMPH % 32.3 % (24.0-44.0); MEAN CORPUSCULAR HEMOGLOBIN 30.3 pg (27.0-33.0); MEAN CORPUSCULAR HGB CONC 32.9 g/dl (32.0-36.5); MEAN CORPUSCULAR VOLUME 92.1 fl (80.0-96.0); MONO # 0.8 10^3/uL (0.0-0.8); MONO % 6.2 % (2.0-8.0); NEUTROPHILS # 7.6 10^3/uL (1.5-8.5); NEUTROPHILS % 60.2 % (36.0-66.0); PLATELET COUNT, AUTOMATED 223 10^3/uL (150-450); RED BLOOD COUNT 4.68 10^6/uL (4.00-5.40); WHITE BLOOD COUNT 12.6 10^3/uL (4.0-10.0)
[2023-02-28 03:28] LABS: HCG, SERUM QUALITATIVE NEGATIVE (NEGATIVE)
[2023-02-28 03:49] LABS: ETHYL ALCOHOL (ETHANOL) 0.219 % (0.000-0.010)
[2023-02-28 03:50] LABS: ACETAMINOPHEN LEVEL < 2.0 UG/ML (10.0-20.0); SALICYLATE LEVEL < 3.0 MG/DL (<30)
[2023-02-28 03:51] LABS: ALBUMIN 3.6 G/DL (3.2-5.2); ALKALINE PHOSPHATASE 76 U/L (46-116); ALT/SGPT 33 U/L (7.0-40); AST/SGOT 40 U/L (<34); BILIRUBIN,DIRECT 0.4 MG/DL (<0.4); BILIRUBIN,TOTAL 1.2 MG/DL (0.3-1.2); BLOOD UREA NITROGEN 8 MG/DL (9-23); CALCIUM LEVEL 8.7 MG/DL (8.5-10.1); CARBON DIOXIDE LEVEL 19 MMOL/L (20-31); CHLORIDE LEVEL 108 MMOL/L (98-107); CREATININE FOR GFR 0.83 MG/DL (0.55-1.30); GLOMERULAR FILTRATION RATE > 60.0 (>60); GLUCOSE, FASTING 103 MG/DL (60-100); SODIUM LEVEL 142 MMOL/L (136-145); TOTAL PROTEIN 6.5 G/DL (5.7-8.2)
[2023-02-28 03:53] LABS: THYROID STIMULATING HORMONE 0.834 uIU/ML (0.55-4.78)
[2023-02-28 03:54] LABS: CPK CREATINE PHOSPHOKINASE 731 U/L (34-145)
[2023-02-28 05:33] LABS: AMPHETAMINES LEVEL URINE NEGATIVE (NEGATIVE); BARBITURATES URINE NEGATIVE (NEGATIVE); BENZODIAZEPINES URINE NEGATIVE (NEGATIVE); COCAINE METABOLITE URINE NEGATIVE (NEGATIVE); METHADONE URINE NEGATIVE (NEGATIVE); OPIATES URINE NEGATIVE (NEGATIVE); PHENCYCLIDINE URINE NEGATIVE (NEGATIVE)
[2023-02-28 05:35] LABS: CANNABINOIDS URINE POSITIVE (NEGATIVE)
[2023-02-28 08:21] VITALS: O2SAT 96
[2023-02-28] MEDS ORDERED: CEPH500C PO (09:49)
[2023-02-28] MEDS ORDERED: CEPHALEXIN 500 MG CAP PO ONE (09:50)
[2023-02-28 10:42] VITALS: BP 133/83; TEMP 97.2
== END 2023-02-28 10:25 | disposition home or self-care (01) ==
LOC: M ED 02:41
DX: F10.129 Alcohol abuse with intoxication, unspecified (principal); Y90.7 Blood alcohol level of 200-239 mg/100 ml; S81.801A Unspecified open wound, right lower leg, initial encounter; X78.9XXA Intentional self-harm by unspecified sharp object, initial encounter; F32.A Depression, unspecified; F41.9 Anxiety disorder, unspecified; F60.3 Borderline personality disorder; F43.10 Post-traumatic stress disorder, unspecified; R56.9 Unspecified convulsions; Z88.1 Allergy status to other antibiotic agents; Z88.2 Allergy status to sulfonamides; Z88.5 Allergy status to narcotic agent; Z88.6 Allergy status to analgesic agent; Z88.8 Allergy status to other drugs, medicaments and biological substances; Z79.899 Other long term (current) drug therapy
CPT/HCPCS: 80048; 80076; 80143; 80307; 82077; 82550; 83605; 84443; 84703; 85025; 93005; 93041; 94760; 96361; 96374; 99285; J2060

== ENCOUNTER 2023-04-05 11:43 | Emergency (ER) | payer OTHER ==
[~2023-04-05] VITALS: Ht 175.3 cm; Wt 148.4 kg
[~2023-04-05 11:43] MED LIST changes: +CEPH500C PO
[2023-04-05] MEDS ORDERED: AZIT500T5 PO (12:02)
[2023-04-05] MEDS ORDERED: METOCLOPRAMIDE INJ 10MG/2ML VIAL IV ONE (14:05)
[2023-04-05] MEDS ORDERED: NS 1,000 ML IV ONE (14:05)
[2023-04-05] MEDS ORDERED: ISOVUE-370 76% 100ML VIAL As Ordered ONE (14:45)
[2023-04-05 15:13] LABS: ALBUMIN 3.7 G/DL (3.2-5.2); BILIRUBIN,DIRECT 0.2 MG/DL (<0.4); BILIRUBIN,TOTAL 0.6 MG/DL (0.3-1.2); TOTAL PROTEIN 6.9 G/DL (5.7-8.2)
[2023-04-05 15:16] LABS: BASO % 0.1 % (0.0-1.0); EOS # 0.2 10^3/uL (0.0-0.5); EOS % 1.4 % (0.0-3.0); HEMATOCRIT 48.7 % (36.0-47.0); LYMPH # 2.9 10^3/uL (1.5-5.0); LYMPH % 19.8 % (24.0-44.0); MEAN CORPUSCULAR HGB CONC 32.9 g/dl (32.0-36.5); MEAN CORPUSCULAR VOLUME 94.4 fl (80.0-96.0); MONO % 6.9 % (2.0-8.0); NEUTROPHILS # 10.6 10^3/uL (1.5-8.5); NEUTROPHILS % 71.6 % (36.0-66.0); PLATELET COUNT, AUTOMATED 254 10^3/uL (150-450); RED BLOOD COUNT 5.16 10^6/uL (4.00-5.40); WHITE BLOOD COUNT 14.9 10^3/uL (4.0-10.0)
[2023-04-05 15:23] LABS: RSV AMPLIFICATION NEGATIVE (NEGATIVE)
[2023-04-05 16:00] VITALS: BP 137/75; TEMP 98.9; O2SAT 96
== END 2023-04-05 16:09 | disposition home or self-care (01) ==
LOC: M ED 12:51
DX: B34.9 Viral infection, unspecified (principal); Z20.828 Contact with and (suspected) exposure to other viral communicable diseases; R11.2 Nausea with vomiting, unspecified; R10.9 Unspecified abdominal pain; F17.210 Nicotine dependence, cigarettes, uncomplicated; Z88.8 Allergy status to other drugs, medicaments and biological substances; Z88.2 Allergy status to sulfonamides; Z88.0 Allergy status to penicillin; Z88.6 Allergy status to analgesic agent; Z88.1 Allergy status to other antibiotic agents; Z88.5 Allergy status to narcotic agent; Z91.040 Latex allergy status; Z91.010 Allergy to peanuts; Z91.018 Allergy to other foods
CPT/HCPCS: 74177; 80047; 80076; 81001; 83690; 84702; 85025; 87088; 87186; 87631; 87880; 96374; 99284; J2765; Q9967

== ENCOUNTER 2023-06-10 01:53 | Inpatient (IN) | payer MEDICAID, OTHER ==
[~2023-06-10] VITALS: Ht 175.3 cm; Wt 145.0 kg
[~2023-06-10 01:53] MED LIST changes: +AZIT500T5 PO; -BUPR1TAB56; +BUPR1TAB56 PO; -BUSP5TA; +BUSP5TA PO; -CETI-24; -HYDR50TA70; -TRAZ-257; +TRAZ-257 PO
[2023-06-10 02:53] LABS: HEMATOCRIT 44.6 % (36.0-47.0); HEMOGLOBIN 14.9 g/dl (12.0-15.5); MEAN CORPUSCULAR HGB CONC 33.4 g/dl (32.0-36.5); MEAN CORPUSCULAR VOLUME 92.9 fl (80.0-96.0); PLATELET COUNT, AUTOMATED 249 10^3/uL (150-450); WHITE BLOOD COUNT 13.1 10^3/uL (4.0-10.0)
[2023-06-10 03:18] LABS: ETHYL ALCOHOL (ETHANOL) 0.169 % (0.000-0.010)
[2023-06-10 03:20] LABS: ALBUMIN 3.7 G/DL (3.2-5.2); ALKALINE PHOSPHATASE 70 U/L (46-116); ALT/SGPT 22 U/L (7.0-40); AST/SGOT 21 U/L (<34); BILIRUBIN,DIRECT 0.1 MG/DL (<0.4); BILIRUBIN,TOTAL 0.4 MG/DL (0.3-1.2); BLOOD UREA NITROGEN 12 MG/DL (9-23); CALCIUM LEVEL 9.2 MG/DL (8.5-10.1); CARBON DIOXIDE LEVEL 24 MMOL/L (20-31); CHLORIDE LEVEL 109 MMOL/L (98-107); CREATININE FOR GFR 0.86 MG/DL (0.55-1.30); GLOMERULAR FILTRATION RATE > 60.0 (>60); GLUCOSE, FASTING 94 MG/DL (60-100); SALICYLATE LEVEL < 3.0 MG/DL (<30); SODIUM LEVEL 142 MMOL/L (136-145); TOTAL PROTEIN 6.8 G/DL (5.7-8.2)
[2023-06-10 03:22] LABS: THYROID STIMULATING HORMONE 2.047 uIU/ML (0.55-4.78)
[2023-06-10 03:48] LABS: HCG, SERUM QUALITATIVE NEGATIVE (NEGATIVE)
[2023-06-10] MEDS ORDERED: MED REC IN PROGRESS XX SCH (05:00)
[2023-06-10 07:00] LABS: AMPHETAMINES LEVEL URINE NEGATIVE (NEGATIVE); BARBITURATES URINE NEGATIVE (NEGATIVE); BENZODIAZEPINES URINE NEGATIVE (NEGATIVE); COCAINE METABOLITE URINE NEGATIVE (NEGATIVE); METHADONE URINE NEGATIVE (NEGATIVE); OPIATES URINE NEGATIVE (NEGATIVE); PHENCYCLIDINE URINE NEGATIVE (NEGATIVE)
[2023-06-10 07:07] LABS: CANNABINOIDS URINE POSITIVE (NEGATIVE)
[2023-06-10] MEDS ORDERED: TRIA1CR80 TOP (09:17)
[2023-06-10] MEDS ORDERED: VENTAER INH (09:17)
[2023-06-10] MEDS ORDERED: HOME MED LIST COMPLETE! XX SCH (10:55)
[2023-06-10] MEDS ORDERED: traZODone 50 MG TAB PO PRN (11:05)
[2023-06-10] MEDS ORDERED: ACETAMINOPHEN TAB 650MG DOSE (2X325MG) PO PRN (11:05)
[2023-06-10] MEDS ORDERED: diphenhydrAMINE 25MG CAP PO PRN (11:05)
[2023-06-10] MEDS ORDERED: IBUPROFEN 400MG TAB PO PRN (11:05)
[2023-06-10] MEDS ORDERED: MOM 30ML SUSPENSION UDC PO PRN (11:05)
[2023-06-10] MEDS ORDERED: LORazepam 2 MG TAB PO PRN (11:05)
[2023-06-10] MEDS ORDERED: MAALOX 30 ML SUSP *UDC PO PRN (11:05)
[2023-06-10] MEDS: MULTIVITAMINS/MINERALS THERAP 1 TAB PO SCH (11:47)
[2023-06-10] MEDS: FOLIC ACID 1MG TAB PO SCH (11:47)
[2023-06-10] MEDS: THIAMINE 100 MG TAB PO SCH ×2 (11:47→21:55)
[2023-06-10 13:50] VITALS: BP 129/76
[2023-06-10] MEDS ORDERED: CETIRIZINE (ZyrTEC) 10 MG TAB PO PRN (19:15)
[2023-06-10] MEDS: traZODone 100 MG TAB PO SCH (21:55)
[2023-06-10] MEDS: buPROPion (WELLBUTRIN SR) 100 MG SR TAB PO SCH (21:56)
[2023-06-10 22:30] VITALS: BP 121/58
[2023-06-11 06:24] VITALS: BP 116/56; TEMP 98.9; O2SAT 97
[2023-06-11 06:44] VITALS: BP 116/56
[2023-06-11] MEDS: THIAMINE 100 MG TAB PO SCH ×2 (09:53→20:55)
[2023-06-11] MEDS: FOLIC ACID 1MG TAB PO SCH (09:54)
[2023-06-11] MEDS: MULTIVITAMINS/MINERALS THERAP 1 TAB PO SCH (09:54)
[2023-06-11] MEDS: NALTREXONE 50 MG TAB PO SCH (13:13)
[2023-06-11] MEDS: DIVALPROEX 250MG TAB PO SCH ×2 (13:13→20:55)
[2023-06-11] MEDS: PILL CUTTER 1 EACH XX PRN (13:13)
[2023-06-11] MEDS: buPROPion (WELLBUTRIN SR) 100 MG SR TAB PO SCH ×2 (13:13→22:07)
[2023-06-11 14:23] VITALS: BP 129/67
[2023-06-11 18:39] VITALS: BP 137/75; TEMP 97; O2SAT 98
[2023-06-11] MEDS: traZODone 100 MG TAB PO SCH (20:55)
[2023-06-11 21:24] VITALS: BP 142/80
[2023-06-12 05:39] VITALS: BP 135/80; TEMP 97.6; O2SAT 98
[2023-06-12] MEDS: hydrOXYzine 50 MG TAB PO PRN ×3 (05:48→21:00)
[2023-06-12 08:13] VITALS: BP 135/80
[2023-06-12] MEDS: MULTIVITAMINS/MINERALS THERAP 1 TAB PO SCH (09:32)
[2023-06-12] MEDS: FOLIC ACID 1MG TAB PO SCH (09:32)
[2023-06-12] MEDS: THIAMINE 100 MG TAB PO SCH ×2 (09:32→21:00)
[2023-06-12] MEDS: DIVALPROEX 250MG TAB PO SCH ×2 (09:33→21:00)
[2023-06-12] MEDS: NALTREXONE 50 MG TAB PO SCH (09:33)
[2023-06-12] MEDS: PILL CUTTER 1 EACH XX PRN (09:33)
[2023-06-12] MEDS: buPROPion (WELLBUTRIN SR) 100 MG SR TAB PO SCH ×2 (09:59→21:04)
[2023-06-12] MEDS: BACITRACIN OINTMENT 30GM TUBE TOP SCH ×2 (10:54→20:58)
[2023-06-12] MEDS: busPIRone 5 MG TAB PO PRN ×2 (14:03→21:00)
[2023-06-12 14:33] LABS: ALBUMIN 3.7 G/DL (3.2-5.2); ALKALINE PHOSPHATASE 77 U/L (46-116); ALT/SGPT 31 U/L (7.0-40); AST/SGOT 19 U/L (<34); BILIRUBIN,TOTAL 1.3 MG/DL (0.3-1.2); BLOOD UREA NITROGEN 11 MG/DL (9-23); CALCIUM LEVEL 9.4 MG/DL (8.5-10.1); CARBON DIOXIDE LEVEL 29 MMOL/L (20-31); CHLORIDE LEVEL 104 MMOL/L (98-107); CHOLESTEROL LEVEL 178 MG/DL (<200); CHOLESTEROL RISK RATIO 3.46 (<5); CREATININE FOR GFR 0.97 MG/DL (0.55-1.30); GLOMERULAR FILTRATION RATE > 60.0 (>60); GLUCOSE, FASTING 87 MG/DL (60-100); HDL CHOLESTEROL 51.4 MG/DL (>40); LDL CHOLESTEROL 97.2 MG/DL (<100); NON-HDL-C 126.6 MG/DL; POTASSIUM SERUM 4.1 MMOL/L (3.5-5.1); SODIUM LEVEL 140 MMOL/L (136-145); TOTAL PROTEIN 6.9 G/DL (5.7-8.2); TRIGLYCERIDES LEVEL 147 MG/DL (<150)
[2023-06-12 15:27] VITALS: BP 129/70
[2023-06-12 16:13] VITALS: BP 128/76; TEMP 97.9; O2SAT 98
[2023-06-12] MEDS: traZODone 100 MG TAB PO SCH (21:00)
[2023-06-13 06:19] VITALS: BP 109/66
[2023-06-13 06:25] VITALS: BP 109/66; TEMP 97.7; O2SAT 97
[2023-06-13] MEDS: BACITRACIN OINTMENT 30GM TUBE TOP SCH ×2 (09:00→20:01)
[2023-06-13] MEDS: FOLIC ACID 1MG TAB PO SCH (09:06)
[2023-06-13] MEDS: buPROPion (WELLBUTRIN SR) 100 MG SR TAB PO SCH ×2 (09:06→20:03)
[2023-06-13] MEDS: DIVALPROEX 250MG TAB PO SCH ×2 (09:06→20:03)
[2023-06-13] MEDS: MULTIVITAMINS/MINERALS THERAP 1 TAB PO SCH (09:06)
[2023-06-13] MEDS: NALTREXONE 50 MG TAB PO SCH (09:07)
[2023-06-13 15:10] VITALS: BP 139/63
[2023-06-13] MEDS: hydrOXYzine 50 MG TAB PO PRN (15:15)
[2023-06-13 16:13] VITALS: BP 129/63; TEMP 97.8; O2SAT 100
[2023-06-13] MEDS: busPIRone 5 MG TAB PO PRN (18:36)
[2023-06-13] MEDS: traZODone 100 MG TAB PO SCH (20:03)
[2023-06-14 06:46] VITALS: BP 126/57; TEMP 98; O2SAT 95
[2023-06-14] MEDS: buPROPion (WELLBUTRIN SR) 100 MG SR TAB PO SCH ×2 (09:32→21:33)
[2023-06-14] MEDS: FOLIC ACID 1MG TAB PO SCH (09:32)
[2023-06-14] MEDS: MULTIVITAMINS/MINERALS THERAP 1 TAB PO SCH (09:33)
[2023-06-14] MEDS: busPIRone 5 MG TAB PO PRN (09:33)
[2023-06-14] MEDS: DIVALPROEX 250MG TAB PO SCH ×2 (09:33→21:33)
[2023-06-14] MEDS: NALTREXONE 50 MG TAB PO SCH (09:34)
[2023-06-14] MEDS: BACITRACIN OINTMENT 30GM TUBE TOP SCH ×2 (09:34→21:00)
[2023-06-14 16:12] VITALS: BP 146/68; TEMP 97.6; O2SAT 100
[2023-06-14] MEDS: hydrOXYzine 50 MG TAB PO PRN (18:02)
[2023-06-14] MEDS: traZODone 100 MG TAB PO SCH (21:33)
[2023-06-15 06:35] VITALS: BP 115/61; TEMP 97.1; O2SAT 95
[2023-06-15] MEDS: BACITRACIN OINTMENT 30GM TUBE TOP SCH ×2 (09:11→21:01)
[2023-06-15] MEDS: FOLIC ACID 1MG TAB PO SCH (09:11)
[2023-06-15] MEDS: MULTIVITAMINS/MINERALS THERAP 1 TAB PO SCH (09:12)
[2023-06-15] MEDS: NALTREXONE 50 MG TAB PO SCH (09:12)
[2023-06-15] MEDS: buPROPion (WELLBUTRIN SR) 100 MG SR TAB PO SCH ×2 (09:12→20:59)
[2023-06-15] MEDS: busPIRone 5 MG TAB PO PRN (09:12)
[2023-06-15] MEDS: DIVALPROEX 250MG TAB PO SCH ×2 (09:12→20:59)
[2023-06-15] MEDS ORDERED: TRIAMCINOLONE ACET 0.1% CREAM 80GM TOP PRN (10:15)
[2023-06-15] MEDS: hydrOXYzine 50 MG TAB PO PRN (14:47)
[2023-06-15 19:12] VITALS: BP 133/81; TEMP 97.6; O2SAT 100
[2023-06-15] MEDS: PRAZOSIN 1 MG CAP PO SCH (20:59)
[2023-06-15] MEDS: traZODone 100 MG TAB PO SCH (20:59)
[2023-06-16 06:27] VITALS: BP 104/58; TEMP 98.5; O2SAT 97
[2023-06-16] MEDS: PILL CUTTER 1 EACH XX PRN (08:48)
[2023-06-16] MEDS: NALTREXONE 50 MG TAB PO SCH (08:48)
[2023-06-16] MEDS: MULTIVITAMINS/MINERALS THERAP 1 TAB PO SCH (08:49)
[2023-06-16] MEDS: FOLIC ACID 1MG TAB PO SCH (08:49)
[2023-06-16] MEDS: buPROPion (WELLBUTRIN SR) 100 MG SR TAB PO SCH ×2 (08:49→20:52)
[2023-06-16] MEDS: DIVALPROEX 250MG TAB PO SCH ×2 (08:49→20:52)
[2023-06-16] MEDS: busPIRone 5 MG TAB PO PRN (08:50)
[2023-06-16] MEDS: BACITRACIN OINTMENT 30GM TUBE TOP SCH ×2 (11:22→20:53)
[2023-06-16 17:45] VITALS: BP 144/72; TEMP 97.6; O2SAT 100
[2023-06-16] MEDS: hydrOXYzine 50 MG TAB PO PRN (20:51)
[2023-06-16 20:52] VITALS: BP 159/77
[2023-06-16] MEDS: PRAZOSIN 1 MG CAP PO SCH (20:52)
[2023-06-16] MEDS: traZODone 100 MG TAB PO SCH (20:52)
[2023-06-16 22:19] VITALS: BP 148/70
[2023-06-17 06:09] VITALS: BP 105/55; TEMP 97.1; O2SAT 97
[2023-06-17] MEDS: busPIRone 5 MG TAB PO PRN (08:57)
[2023-06-17] MEDS: buPROPion (WELLBUTRIN SR) 100 MG SR TAB PO SCH (08:57)
[2023-06-17] MEDS: DIVALPROEX 250MG TAB PO SCH (08:57)
[2023-06-17] MEDS: NALTREXONE 50 MG TAB PO SCH (08:58)
[2023-06-17] MEDS: BACITRACIN OINTMENT 30GM TUBE TOP SCH (08:59)
[2023-06-17] MEDS: FOLIC ACID 1MG TAB PO SCH (08:59)
[2023-06-17] MEDS: MULTIVITAMINS/MINERALS THERAP 1 TAB PO SCH (08:59)
[2023-06-17] MEDS ORDERED: DEPA250T32 PO (09:14)
[2023-06-17] MEDS ORDERED: NALT50TA4 PO (09:14)
[2023-06-17] MEDS ORDERED: MINI1CAP PO (09:14)
[2023-06-18] MEDS ORDERED: DEPA250T32 PO (14:32)
[2023-06-18] MEDS ORDERED: NALT50TA4 PO (14:33)
[2023-06-18] MEDS ORDERED: PRAZ1CAP PO (14:34)
== END 2023-06-17 11:32 | disposition home or self-care (01) | DRG 751 ==
LOC: EDBD 01:53 → M ED 01:53 → M ED INP 11:01 → M PSY 13:45
PROVIDERS: ADMIT Student in an Organized Health Care Education/Training Program; ATTEND Student in an Organized Health Care Education/Training Program
DX: F33.1 Major depressive disorder, recurrent, moderate (principal); Z68.42 Body mass index [BMI] 45.0-49.9, adult; R45.851 Suicidal ideations; G40.909 Epilepsy, unspecified, not intractable, without status epilepticus; E66.01 Morbid (severe) obesity due to excess calories; F10.10 Alcohol abuse, uncomplicated; F60.3 Borderline personality disorder; G47.00 Insomnia, unspecified; S51.812A Laceration without foreign body of left forearm, initial encounter; X78.9XXA Intentional self-harm by unspecified sharp object, initial encounter; Y92.9 Unspecified place or not applicable; J45.909 Unspecified asthma, uncomplicated; Z91.52 Personal history of nonsuicidal self-harm; F17.210 Nicotine dependence, cigarettes, uncomplicated; F43.10 Post-traumatic stress disorder, unspecified; Z62.810 Personal history of physical and sexual abuse in childhood; Z79.899 Other long term (current) drug therapy; Z91.010 Allergy to peanuts; Z88.6 Allergy status to analgesic agent; Z91.018 Allergy to other foods; Z88.2 Allergy status to sulfonamides; Z91.040 Latex allergy status; Z88.0 Allergy status to penicillin; Z88.1 Allergy status to other antibiotic agents; Z88.5 Allergy status to narcotic agent; Z88.8 Allergy status to other drugs, medicaments and biological substances; Z20.822 Contact with and (suspected) exposure to COVID-19; Z86.16 Personal history of COVID-19; Z90.49 Acquired absence of other specified parts of digestive tract; Z91.51 Personal history of suicidal behavior

== ENCOUNTER 2023-07-06 23:28 | Inpatient (IN) | payer MEDICAID ==
[~2023-07-06 23:28] MED LIST changes: +DEPA250T32 PO; +MINI1CAP PO; +NALT50TA4 PO; +PRAZ1CAP PO; +TRIA1CR80 TOP
[2023-07-06] MEDS ORDERED: NS 1,000 ML IV ONE (23:35)
[2023-07-06] MEDS ORDERED: LORazepam 2 MG/ML 1ML VIAL IM ONE (23:35)
[2023-07-06] MEDS ORDERED: HALOPERIDOL 5MG/ML 1ML VIAL IM ONE (23:35)
[2023-07-07 00:25] LABS: ETHYL ALCOHOL (ETHANOL) 0.244 % (0.000-0.010); HEMATOCRIT 48.3 % (36.0-47.0); HEMOGLOBIN 15.8 g/dl (12.0-15.5); MEAN CORPUSCULAR HEMOGLOBIN 30.4 pg (27.0-33.0); MEAN CORPUSCULAR HGB CONC 32.7 g/dl (32.0-36.5); MEAN CORPUSCULAR VOLUME 92.9 fl (80.0-96.0); PLATELET COUNT, AUTOMATED 286 10^3/uL (150-450); WHITE BLOOD COUNT 14.2 10^3/uL (4.0-10.0)
[2023-07-07 00:27] LABS: ALKALINE PHOSPHATASE 83 U/L (46-116); ALT/SGPT 39 U/L (7.0-40); AST/SGOT 30 U/L (<34); BILIRUBIN,DIRECT 0.2 MG/DL (<0.4); BILIRUBIN,TOTAL 0.6 MG/DL (0.3-1.2); BLOOD UREA NITROGEN 8 MG/DL (9-23); CALCIUM LEVEL 9.8 MG/DL (8.5-10.1); CARBON DIOXIDE LEVEL 24 MMOL/L (20-31); CHLORIDE LEVEL 107 MMOL/L (98-107); CREATININE FOR GFR 0.92 MG/DL (0.55-1.30); GLOMERULAR FILTRATION RATE > 60.0 (>60); GLUCOSE, FASTING 86 MG/DL (60-100); SALICYLATE LEVEL < 3.0 MG/DL (<30); SODIUM LEVEL 141 MMOL/L (136-145); TOTAL PROTEIN 7.4 G/DL (5.7-8.2)
[2023-07-07 00:29] LABS: THYROID STIMULATING HORMONE 1.425 uIU/ML (0.55-4.78)
[2023-07-07 00:33] LABS: CPK CREATINE PHOSPHOKINASE 195 U/L (34-145); RSV AMPLIFICATION NEGATIVE (NEGATIVE)
[2023-07-07 00:43] LABS: HCG, SERUM QUALITATIVE NEGATIVE (NEGATIVE)
[2023-07-07 00:56] LABS: ATYPICAL LYMPH 11 % (0-5); EOSINOPHILS 1 % (0-3); LYMPHOCYTES 35 % (16-44); MONOCYTES 4 % (0-5); NEUTROPHILS 49 % (28-66); PLATELET ESTIMATE NORMAL (NORMAL)
[2023-07-07 01:05] LABS: AMPHETAMINES LEVEL URINE NEGATIVE (NEGATIVE); BARBITURATES URINE NEGATIVE (NEGATIVE); PHENCYCLIDINE URINE NEGATIVE (NEGATIVE)
[2023-07-07 01:06] LABS: BENZODIAZEPINES URINE NEGATIVE (NEGATIVE); COCAINE METABOLITE URINE NEGATIVE (NEGATIVE); METHADONE URINE NEGATIVE (NEGATIVE); OPIATES URINE NEGATIVE (NEGATIVE)
[2023-07-07 01:08] LABS: CANNABINOIDS URINE POSITIVE (NEGATIVE)
[2023-07-07] MEDS ORDERED: LIDOCAINE 1% MDV 20ML VIAL SC ONE (07:35)
[2023-07-07] MEDS ORDERED: DERMABOND TOPICAL SKIN ADHESIVE TOP ONE (07:35)
[2023-07-07] MEDS ORDERED: oxyCODONE 5MG TAB PO ONE (08:40)
[2023-07-07] MEDS ORDERED: MED REC IN PROGRESS XX SCH (11:50)
[2023-07-07] MEDS ORDERED: traZODone 50 MG TAB PO PRN (13:00)
[2023-07-07] MEDS ORDERED: LORazepam 2 MG TAB PO PRN (13:00)
[2023-07-07] MEDS ORDERED: MOM 30ML SUSPENSION UDC PO PRN (13:00)
[2023-07-07] MEDS ORDERED: MAALOX 30 ML SUSP *UDC PO PRN (13:00)
[2023-07-07] MEDS: MULTIVITAMINS/MINERALS THERAP 1 TAB PO SCH (13:53)
[2023-07-07] MEDS: THIAMINE 100 MG TAB PO SCH ×2 (13:53→20:18)
[2023-07-07] MEDS: FOLIC ACID 1MG TAB PO SCH (13:54)
[2023-07-07 15:58] VITALS: BP 130/89
[2023-07-07 15:59] VITALS: BP 130/89; TEMP 98.1; O2SAT 94
[2023-07-07] MEDS ORDERED: PRAZ1CAP PO (23:55)
[2023-07-07] MEDS ORDERED: DIVA250T67 PO (23:55)
[2023-07-08] MEDS ORDERED: HOME MED LIST COMPLETE! XX SCH
[2023-07-08 06:24] VITALS: BP 118/55
[2023-07-08 06:29] VITALS: BP 118/55; TEMP 98.6; O2SAT 96
[2023-07-08] MEDS: FOLIC ACID 1MG TAB PO SCH (09:00)
[2023-07-08] MEDS: THIAMINE 100 MG TAB PO SCH (09:00)
[2023-07-08] MEDS: MULTIVITAMINS/MINERALS THERAP 1 TAB PO SCH (09:00)
[2023-07-08] MEDS ORDERED: CETIRIZINE (ZyrTEC) 10 MG TAB PO PRN (10:40)
[2023-07-08] MEDS ORDERED: ALBUTEROL 90 MCG/ACT 8GM HFA INHALER INH PRN (10:40)
[2023-07-08] MEDS: DIVALPROEX 250MG TAB PO SCH (11:27)
[2023-07-08] MEDS: buPROPion (WELLBUTRIN SR) 100 MG SR TAB PO SCH ×2 (11:27→21:24)
[2023-07-08 14:47] VITALS: BP 139/74
[2023-07-08 16:00] VITALS: BP 139/74; TEMP 98.1; O2SAT 99
[2023-07-08] MEDS: traZODone 100 MG TAB PO SCH (21:24)
[2023-07-08] MEDS: PRAZOSIN 1 MG CAP PO SCH (21:29)
[2023-07-09 06:12] VITALS: BP 111/54; TEMP 98.3; O2SAT 95
[2023-07-09] MEDS: buPROPion (WELLBUTRIN SR) 100 MG SR TAB PO SCH ×2 (08:17→20:09)
[2023-07-09] MEDS: MULTIVITAMINS/MINERALS THERAP 1 TAB PO SCH (08:18)
[2023-07-09] MEDS: FOLIC ACID 1MG TAB PO SCH (08:18)
[2023-07-09] MEDS: DIVALPROEX 250MG TAB PO SCH (08:18)
[2023-07-09] MEDS: SERTRALINE HCL 50 MG TAB PO SCH (11:03)
[2023-07-09] MEDS: MUPIROCIN 2% OINT 22 GM TUBE TOP SCH (11:36)
[2023-07-09] MEDS ORDERED: traMADol 50 MG TAB PO ONE (12:40)
[2023-07-09 17:13] VITALS: BP 151/71; TEMP 98.6; O2SAT 98
[2023-07-09] MEDS: traZODone 100 MG TAB PO SCH (20:10)
[2023-07-09] MEDS: PRAZOSIN 1 MG CAP PO SCH (20:10)
[2023-07-10 06:36] VITALS: BP 107/66; TEMP 97; O2SAT 96
[2023-07-10] MEDS: busPIRone 5 MG TAB PO PRN ×2 (08:31→20:19)
[2023-07-10] MEDS: SERTRALINE HCL 50 MG TAB PO SCH (08:31)
[2023-07-10] MEDS: buPROPion (WELLBUTRIN SR) 100 MG SR TAB PO SCH ×2 (08:31→20:19)
[2023-07-10] MEDS: FOLIC ACID 1MG TAB PO SCH (08:31)
[2023-07-10] MEDS: DIVALPROEX 250MG TAB PO SCH (08:31)
[2023-07-10] MEDS: MULTIVITAMINS/MINERALS THERAP 1 TAB PO SCH (08:31)
[2023-07-10] MEDS: MUPIROCIN 2% OINT 22 GM TUBE TOP SCH (08:32)
[2023-07-10 16:36] VITALS: BP 135/80; TEMP 98; O2SAT 99
[2023-07-10] MEDS: PRAZOSIN 1 MG CAP PO SCH (20:19)
[2023-07-10] MEDS: traZODone 100 MG TAB PO SCH (20:19)
[2023-07-11 06:41] VITALS: BP 106/55; TEMP 96.7; O2SAT 100
[2023-07-11] MEDS: MULTIVITAMINS/MINERALS THERAP 1 TAB PO SCH (08:15)
[2023-07-11] MEDS: DIVALPROEX 250MG TAB PO SCH (08:15)
[2023-07-11] MEDS: buPROPion (WELLBUTRIN SR) 100 MG SR TAB PO SCH ×2 (08:15→20:11)
[2023-07-11] MEDS: SERTRALINE HCL 50 MG TAB PO SCH (08:15)
[2023-07-11] MEDS: FOLIC ACID 1MG TAB PO SCH (08:15)
[2023-07-11] MEDS: MUPIROCIN 2% OINT 22 GM TUBE TOP SCH (09:45)
[2023-07-11] MEDS: busPIRone 5 MG TAB PO PRN (14:42)
[2023-07-11 16:02] VITALS: BP 144/76; TEMP 97.2; O2SAT 98
[2023-07-11] MEDS: traZODone 100 MG TAB PO SCH (20:11)
[2023-07-11] MEDS: PRAZOSIN 1 MG CAP PO SCH (20:11)
[2023-07-12 06:49] VITALS: BP 116/64; TEMP 97.4; O2SAT 100
[2023-07-12] MEDS: MULTIVITAMINS/MINERALS THERAP 1 TAB PO SCH (08:03)
[2023-07-12] MEDS: DIVALPROEX 250MG TAB PO SCH (08:03)
[2023-07-12] MEDS: FOLIC ACID 1MG TAB PO SCH (08:03)
[2023-07-12] MEDS: busPIRone 5 MG TAB PO PRN ×2 (08:03→15:26)
[2023-07-12] MEDS: SERTRALINE HCL 50 MG TAB PO SCH (08:03)
[2023-07-12] MEDS: buPROPion (WELLBUTRIN SR) 100 MG SR TAB PO SCH ×2 (08:04→20:20)
[2023-07-12] MEDS ORDERED: MICONAZOLE TOPICAL 2% CREAM 15GM TOP SCH (09:00)
[2023-07-12] MEDS ORDERED: MICONAZOLE TOPICAL 2% CREAM 15GM XX SCH (09:00)
[2023-07-12] MEDS: MUPIROCIN 2% OINT 22 GM TUBE TOP SCH (10:40)
[2023-07-12 15:39] VITALS: BP 128/66; TEMP 97.8; O2SAT 97
[2023-07-12] MEDS: PRAZOSIN 1 MG CAP PO SCH (20:20)
[2023-07-12] MEDS: traZODone 100 MG TAB PO SCH (20:21)
[2023-07-12] MEDS: MICONAZOLE-7 VAGINAL 2% CREAM 47.7GM PV SCH (21:00)
[2023-07-13 06:49] VITALS: TEMP 98.2; O2SAT 100
[2023-07-13 06:59] VITALS: BP 119/59
[2023-07-13] MEDS: MUPIROCIN 2% OINT 22 GM TUBE TOP SCH (08:38)
[2023-07-13] MEDS: FOLIC ACID 1MG TAB PO SCH (08:39)
[2023-07-13] MEDS: buPROPion (WELLBUTRIN SR) 100 MG SR TAB PO SCH ×2 (08:39→20:47)
[2023-07-13] MEDS: DIVALPROEX 250MG TAB PO SCH (08:39)
[2023-07-13] MEDS: MULTIVITAMINS/MINERALS THERAP 1 TAB PO SCH (08:39)
[2023-07-13] MEDS: SERTRALINE HCL 50 MG TAB PO SCH (08:39)
[2023-07-13] MEDS: busPIRone 5 MG TAB PO PRN (12:55)
[2023-07-13 18:00] VITALS: BP 174/77; TEMP 97.9; O2SAT 98
[2023-07-13] MEDS: traZODone 100 MG TAB PO SCH (20:46)
[2023-07-13 20:47] VITALS: BP 132/85
[2023-07-13] MEDS: MICONAZOLE-7 VAGINAL 2% CREAM 47.7GM PV SCH (20:47)
[2023-07-13] MEDS: PRAZOSIN 1 MG CAP PO SCH (20:47)
[2023-07-13 20:57] VITALS: BP 132/85
[2023-07-14 06:40] VITALS: BP 131/70; TEMP 97.5; O2SAT 98
[2023-07-14] MEDS: busPIRone 5 MG TAB PO PRN (07:45)
[2023-07-14] MEDS: MUPIROCIN 2% OINT 22 GM TUBE TOP SCH (09:00)
[2023-07-14] MEDS: MULTIVITAMINS/MINERALS THERAP 1 TAB PO SCH (09:20)
[2023-07-14] MEDS: FOLIC ACID 1MG TAB PO SCH (09:20)
[2023-07-14] MEDS: buPROPion (WELLBUTRIN SR) 100 MG SR TAB PO SCH (09:21)
[2023-07-14] MEDS: DIVALPROEX 250MG TAB PO SCH (09:21)
[2023-07-14] MEDS: SERTRALINE HCL 50 MG TAB PO SCH (09:21)
[2023-07-14] MEDS ORDERED: BUSP5TA PO (12:19)
[2023-07-14] MEDS ORDERED: SERT50TA29 PO (12:19)
[2023-07-14] MEDS ORDERED: BUPR1TAB56 PO (12:19)
[2023-07-14] MEDS ORDERED: TRAZ-257 PO (12:19)
[2023-07-14] MEDS ORDERED: MINI1CAP PO (12:19)
[2023-07-14] MEDS ORDERED: NALT50TA4 PO (12:19)
== END 2023-07-14 15:07 | disposition home or self-care (01) | DRG 751 ==
LOC: M ED 23:28 → EDBD 23:28 → M ED INP 07-07 12:57 → M PSY 07-07 15:53
PROVIDERS: ADMIT Student in an Organized Health Care Education/Training Program; ATTEND Student in an Organized Health Care Education/Training Program
DX: F33.2 Major depressive disorder, recurrent severe without psychotic features (principal); R56.9 Unspecified convulsions; E66.01 Morbid (severe) obesity due to excess calories; Z68.42 Body mass index [BMI] 45.0-49.9, adult; F10.229 Alcohol dependence with intoxication, unspecified; F60.3 Borderline personality disorder; J45.909 Unspecified asthma, uncomplicated; F12.10 Cannabis abuse, uncomplicated; G47.00 Insomnia, unspecified; F43.10 Post-traumatic stress disorder, unspecified; F41.0 Panic disorder [episodic paroxysmal anxiety]; F17.210 Nicotine dependence, cigarettes, uncomplicated; Z79.899 Other long term (current) drug therapy; Z88.0 Allergy status to penicillin; Z88.1 Allergy status to other antibiotic agents; Z88.2 Allergy status to sulfonamides; Z88.5 Allergy status to narcotic agent; Z88.6 Allergy status to analgesic agent; Z88.8 Allergy status to other drugs, medicaments and biological substances; Z91.010 Allergy to peanuts; Z91.51 Personal history of suicidal behavior; Z91.018 Allergy to other foods; Z63.5 Disruption of family by separation and divorce; Z62.810 Personal history of physical and sexual abuse in childhood; Z62.811 Personal history of psychological abuse in childhood; Z81.8 Family history of other mental and behavioral disorders; Z91.414 Personal history of adult intimate partner abuse; Z86.16 Personal history of COVID-19; X78.1XXA Intentional self-harm by knife, initial encounter; Z91.52 Personal history of nonsuicidal self-harm; Z81.1 Family history of alcohol abuse and dependence; S51.812A Laceration without foreign body of left forearm, initial encounter; S81.811A Laceration without foreign body, right lower leg, initial encounter; Y92.039 Unspecified place in apartment as the place of occurrence of the external cause; Y99.8 Other external cause status; Y93.9 Activity, unspecified

== ENCOUNTER → 2023-08-24 | Outpatient (CLI) | payer MEDICAID ==
[~2023-08-24] MED LIST changes: +DIVA250T67 PO; +SERT50TA29 PO
== END ==
LOC: M WUC 13:14
PROVIDERS: ATTEND Student in an Organized Health Care Education/Training Program
DX: M54.50 Low back pain, unspecified (principal)

== ENCOUNTER 2023-09-04 01:56 | Emergency (ER) | payer OTHER ==
[~2023-09-04] VITALS: Ht 177.8 cm; Wt 146.4 kg
[2023-09-04 02:32] LABS: HEMOGLOBIN 12.6 g/dl (12.0-15.5); MEAN CORPUSCULAR HEMOGLOBIN 31.9 pg (27.0-33.0); MEAN CORPUSCULAR HGB CONC 33.2 g/dl (32.0-36.5); MEAN CORPUSCULAR VOLUME 96.2 fl (80.0-96.0); PLATELET COUNT, AUTOMATED 251 10^3/uL (150-450); RED BLOOD COUNT 3.95 10^6/uL (4.00-5.40); WHITE BLOOD COUNT 13.1 10^3/uL (4.0-10.0)
[2023-09-04 02:51] LABS: ETHYL ALCOHOL (ETHANOL) 0.243 % (0.000-0.010)
[2023-09-04 02:52] LABS: ALBUMIN 2.9 G/DL (3.2-5.2); ALKALINE PHOSPHATASE 72 U/L (46-116); ALT/SGPT 21 U/L (7.0-40); AST/SGOT 17 U/L (<34); BILIRUBIN,DIRECT 0.1 MG/DL (<0.4); BILIRUBIN,TOTAL 0.3 MG/DL (0.3-1.2); BLOOD UREA NITROGEN 9 MG/DL (9-23); CALCIUM LEVEL 8.4 MG/DL (8.5-10.1); CARBON DIOXIDE LEVEL 27 MMOL/L (20-31); CHLORIDE LEVEL 111 MMOL/L (98-107); CREATININE FOR GFR 0.86 MG/DL (0.55-1.30); GLOMERULAR FILTRATION RATE > 60.0 (>60); GLUCOSE, FASTING 102 MG/DL (60-100); POTASSIUM SERUM 4.3 MMOL/L (3.5-5.1); SALICYLATE LEVEL < 3.0 MG/DL (<30); SODIUM LEVEL 143 MMOL/L (136-145); TOTAL PROTEIN 5.6 G/DL (5.7-8.2)
[2023-09-04 02:54] LABS: THYROID STIMULATING HORMONE 1.174 uIU/ML (0.55-4.78)
[2023-09-04] MEDS: LIDOCAINE W/EPINEPHRINE 1% 20ML VIAL SC ONE (02:55)
[2023-09-04 03:00] LABS: AMPHETAMINES LEVEL URINE NEGATIVE (NEGATIVE)
[2023-09-04] MEDS: NS 1,000 ML IV ONE (03:00)
[2023-09-04 03:01] LABS: BARBITURATES URINE NEGATIVE (NEGATIVE); BENZODIAZEPINES URINE NEGATIVE (NEGATIVE); COCAINE METABOLITE URINE NEGATIVE (NEGATIVE); METHADONE URINE NEGATIVE (NEGATIVE); OPIATES URINE NEGATIVE (NEGATIVE); PHENCYCLIDINE URINE NEGATIVE (NEGATIVE)
[2023-09-04 03:02] LABS: CPK CREATINE PHOSPHOKINASE 136 U/L (34-145)
[2023-09-04 03:02] LABS: CANNABINOIDS URINE POSITIVE (NEGATIVE)
[2023-09-04 03:04] LABS: RSV AMPLIFICATION NEGATIVE (NEGATIVE)
[2023-09-04 03:06] LABS: HCG, SERUM QUALITATIVE NEGATIVE (NEGATIVE)
[2023-09-04 03:16] LABS: ATYPICAL LYMPH 4 % (0-5); EOSINOPHILS 1 % (0-3); LYMPHOCYTES 43 % (16-44); MONOCYTES 3 % (0-5); NEUTROPHILS 49 % (28-66)
[2023-09-04 03:17] LABS: PLATELET ESTIMATE NORMAL (NORMAL)
[2023-09-04] MEDS: LORazepam 2 MG/ML 1ML VIAL IV STA (03:20)
[2023-09-04] MEDS: traMADol 50 MG TAB PO ONE (11:16)
[2023-09-04] MEDS ORDERED: EPIP0.3I2 INJ (12:41)
[2023-09-04] MEDS ORDERED: NALT50TA4 PO (12:41)
[2023-09-04] MEDS ORDERED: SERT-141 PO (12:41)
[2023-09-04] MEDS ORDERED: CLIN-250 PO (12:41)
[2023-09-04] MEDS ORDERED: HOME MED LIST COMPLETE! XX SCH (12:45)
[2023-09-04] MEDS: hydrOXYzine 50 MG TAB PO SCH (20:22)
[2023-09-04] MEDS: busPIRone 5 MG TAB PO SCH (20:22)
[2023-09-04] MEDS: traZODone 100 MG TAB PO SCH (20:22)
[2023-09-04] MEDS: DIVALPROEX 250MG TAB PO SCH (20:22)
[2023-09-04] MEDS: buPROPion (WELLBUTRIN SR) 100 MG SR TAB PO SCH (20:22)
[2023-09-04 20:23] VITALS: BP 128/86
[2023-09-04] MEDS: PRAZOSIN 1 MG CAP PO SCH (20:23)
[2023-09-05] MEDS ORDERED: SERTRALINE HCL 50 MG TAB PO SCH (09:00)
[2023-09-05 10:33] VITALS: BP 118/56; TEMP 99.1; O2SAT 97
== END 2023-09-05 10:46 | disposition short-term general hospital (02) ==
LOC: EDBD 01:56 → M ED 01:56
DX: R41.82 Altered mental status, unspecified (principal); T14.91XA Suicide attempt, initial encounter; F10.929 Alcohol use, unspecified with intoxication, unspecified; Z88.8 Allergy status to other drugs, medicaments and biological substances; Z88.1 Allergy status to other antibiotic agents; Z88.2 Allergy status to sulfonamides; Z91.010 Allergy to peanuts; Z91.018 Allergy to other foods; Z91.040 Latex allergy status; Z79.51 Long term (current) use of inhaled steroids; Z79.899 Other long term (current) drug therapy
CPT/HCPCS: 12004; 80048; 80076; 80143; 80307; 82077; 82550; 84443; 84703; 85025; 87631; 93005; 93041; 94760; 96361; 96372; 96374; 99285; J2060

== ENCOUNTER 2023-09-30 11:38 | Emergency (ER) | payer OTHER ==
[~2023-09-30] VITALS: Ht 172.7 cm; Wt 145.6 kg
[~2023-09-30 11:38] MED LIST changes: +CLIN-250 PO; +EPIP0.3I2 INJ; +SERT-141 PO
[2023-09-30 11:39] VITALS: BP 137/85; TEMP 97.6; O2SAT 99
[2023-09-30 13:12] LABS: BASO # 0.1 10^3/uL (0.0-0.2); BASO % 0.4 % (0.0-1.0); EOS # 0.2 10^3/uL (0.0-0.5); HEMATOCRIT 39.4 % (36.0-47.0); HEMOGLOBIN 12.6 g/dl (12.0-15.5); MEAN CORPUSCULAR HEMOGLOBIN 30.4 pg (27.0-33.0); MEAN CORPUSCULAR VOLUME 94.9 fl (80.0-96.0); MONO # 0.7 10^3/uL (0.0-0.8); MONO % 6.3 % (2.0-8.0); NEUTROPHILS # 7.6 10^3/uL (1.5-8.5); NEUTROPHILS % 64.9 % (36.0-66.0); PLATELET COUNT, AUTOMATED 329 10^3/uL (150-450); RED BLOOD COUNT 4.15 10^6/uL (4.00-5.40); WHITE BLOOD COUNT 11.7 10^3/uL (4.0-10.0)
[2023-09-30 13:23] LABS: ERYTHROCYTE SEDIMENTATION RATE 19 mm/hr (0-20)
[2023-09-30 13:38] LABS: C REACTIVE PROTEIN QUANTITATIV < 0.40 MG/DL (<1.0)
[2023-09-30 13:39] LABS: BLOOD UREA NITROGEN 16 MG/DL (9-23); CALCIUM LEVEL 9.6 MG/DL (8.5-10.1); CARBON DIOXIDE LEVEL 27 MMOL/L (20-31); CHLORIDE LEVEL 106 MMOL/L (98-107); CREATININE FOR GFR 0.96 MG/DL (0.55-1.30); GLOMERULAR FILTRATION RATE > 60.0 (>60); GLUCOSE, FASTING 85 MG/DL (60-100); POTASSIUM SERUM 4.6 MMOL/L (3.5-5.1); SODIUM LEVEL 139 MMOL/L (136-145)
== END 2023-09-30 15:10 | disposition left against medical advice (07) ==
LOC: M ED 11:38
DX: Z53.21 Procedure and treatment not carried out due to patient leaving prior to being seen by health care provider (principal)

== ENCOUNTER 2023-11-01 02:23 | Inpatient (IN) | payer MEDICAID, OTHER ==
[~2023-11-01] VITALS: Ht 172.7 cm; Wt 147.2 kg
[2023-11-01 04:40] LABS: HEMATOCRIT 37.4 % (36.0-47.0); HEMOGLOBIN 11.9 g/dl (12.0-15.5); MEAN CORPUSCULAR HGB CONC 31.8 g/dl (32.0-36.5); MEAN CORPUSCULAR VOLUME 91.2 fl (80.0-96.0); PLATELET COUNT, AUTOMATED 284 10^3/uL (150-450); WHITE BLOOD COUNT 13.8 10^3/uL (4.0-10.0)
[2023-11-01 05:05] LABS: SALICYLATE LEVEL < 3.0 MG/DL (<30)
[2023-11-01 05:06] LABS: ALBUMIN 3.5 G/DL (3.2-5.2); ALKALINE PHOSPHATASE 85 U/L (46-116); ALT/SGPT 27 U/L (7.0-40); AST/SGOT 19 U/L (<34); BILIRUBIN,DIRECT 0.1 MG/DL (<0.4); BILIRUBIN,TOTAL 0.4 MG/DL (0.3-1.2); BLOOD UREA NITROGEN 13 MG/DL (9-23); CALCIUM LEVEL 9.4 MG/DL (8.5-10.1); CARBON DIOXIDE LEVEL 22 MMOL/L (20-31); CHLORIDE LEVEL 105 MMOL/L (98-107); CREATININE FOR GFR 0.96 MG/DL (0.55-1.30); GLOMERULAR FILTRATION RATE > 60.0 (>60); GLUCOSE, FASTING 95 MG/DL (60-100); POTASSIUM SERUM 3.4 MMOL/L (3.5-5.1); SODIUM LEVEL 138 MMOL/L (136-145); TOTAL PROTEIN 6.7 G/DL (5.7-8.2)
[2023-11-01 05:08] LABS: HCG, SERUM QUALITATIVE NEGATIVE (NEGATIVE); THYROID STIMULATING HORMONE 1.052 uIU/ML (0.55-4.78)
[2023-11-01] MEDS: LIDOCAINE W/EPINEPHRINE 1% 20ML VIAL SC ONE (05:48)
[2023-11-01] MEDS ORDERED: HOME MED LIST COMPLETE! XX SCH (06:30)
[2023-11-01 07:02] LABS: AMPHETAMINES LEVEL URINE NEGATIVE (NEGATIVE); BARBITURATES URINE NEGATIVE (NEGATIVE); BENZODIAZEPINES URINE NEGATIVE (NEGATIVE); COCAINE METABOLITE URINE NEGATIVE (NEGATIVE); METHADONE URINE NEGATIVE (NEGATIVE); OPIATES URINE NEGATIVE (NEGATIVE); PHENCYCLIDINE URINE NEGATIVE (NEGATIVE)
[2023-11-01 07:05] LABS: CANNABINOIDS URINE POSITIVE (NEGATIVE)
[2023-11-01 08:18] LABS: VALPROIC ACID (DEPAKOTE) 3.7 UG/ML (50.0-100.0)
[2023-11-01] MEDS ORDERED: MAALOX 30 ML SUSP *UDC PO PRN (11:25)
[2023-11-01] MEDS ORDERED: LORazepam 2 MG TAB PO PRN (11:25)
[2023-11-01] MEDS ORDERED: MOM 30ML SUSPENSION UDC PO PRN (11:25)
[2023-11-01] MEDS ORDERED: NICOTINE 14 MG/24 HR TRANSDERMAL TD PRN (11:25)
[2023-11-01 15:35] VITALS: BP 123/81
[2023-11-01 16:55] VITALS: BP 123/81; TEMP 97.8; O2SAT 99
[2023-11-01] MEDS: FOLIC ACID 1MG TAB PO SCH (17:32)
[2023-11-01] MEDS: MULTIVITAMINS/MINERALS THERAP 1 TAB PO SCH (17:32)
[2023-11-01] MEDS: THIAMINE 100 MG TAB PO SCH (17:32)
[2023-11-01] MEDS: busPIRone 5 MG TAB PO SCH (21:21)
[2023-11-01] MEDS: DIVALPROEX 250MG TAB PO SCH (21:22)
[2023-11-01] MEDS: buPROPion (WELLBUTRIN SR) 100 MG SR TAB PO SCH (21:22)
[2023-11-01] MEDS: traZODone 50 MG TAB PO PRN (21:28)
[2023-11-02 06:33] VITALS: BP 103/58; TEMP 98.2; O2SAT 96
[2023-11-02 06:38] VITALS: BP 103/58
[2023-11-02] MEDS: SERTRALINE HCL 50 MG TAB PO SCH (08:38)
[2023-11-02] MEDS ORDERED: IBUPROFEN 400MG TAB PO SCH (12:30)
[2023-11-02] MEDS: traMADol 50 MG TAB PO ONE (13:17)
[2023-11-02 14:00] VITALS: BP 145/81
[2023-11-02 18:26] VITALS: BP 149/81; TEMP 97.9; O2SAT 99
[2023-11-02] MEDS: DIVALPROEX 250MG TAB PO SCH (20:58)
[2023-11-03 06:14] VITALS: BP 106/58
[2023-11-03 06:19] VITALS: BP 106/58; TEMP 97.5; O2SAT 97
[2023-11-03 06:23] LABS: CHOLESTEROL RISK RATIO 2.53 (<5); HDL CHOLESTEROL 60.7 MG/DL (>40); LDL CHOLESTEROL 73.7 MG/DL (<100); NON-HDL-C 93.3 MG/DL
[2023-11-03] MEDS: OLANZapine ORAL DISINTEGRATING TAB 5MG PO PRN (14:41)
[2023-11-03 18:37] VITALS: BP 137/74; TEMP 97.5
[2023-11-03 19:30] VITALS: BP 137/74
[2023-11-03 22:00] VITALS: BP 109/53; TEMP 98; O2SAT 99
[2023-11-04 06:00] VITALS: BP 121/63; TEMP 96.7; O2SAT 100
[2023-11-04] MEDS ORDERED: NICO14PA TD (10:16)
[2023-11-04] MEDS ORDERED: DEPA250T32 PO (10:16)
[2023-11-04] MEDS ORDERED: SERT-141 PO (10:16)
[2023-11-04] MEDS ORDERED: OLAN5ZYD PO (10:16)
== END 2023-11-04 12:57 | disposition home or self-care (01) | DRG 751 ==
LOC: M ED 02:23 → M ED INP 11:25 → M PSY 15:31
PROVIDERS: ADMIT Student in an Organized Health Care Education/Training Program; ATTEND Student in an Organized Health Care Education/Training Program
DX: F33.2 Major depressive disorder, recurrent severe without psychotic features (principal); Z68.42 Body mass index [BMI] 45.0-49.9, adult; R45.851 Suicidal ideations; E66.01 Morbid (severe) obesity due to excess calories; F10.20 Alcohol dependence, uncomplicated; F60.3 Borderline personality disorder; M79.641 Pain in right hand; J45.909 Unspecified asthma, uncomplicated; F12.10 Cannabis abuse, uncomplicated; F17.200 Nicotine dependence, unspecified, uncomplicated; Z62.810 Personal history of physical and sexual abuse in childhood; Z56.0 Unemployment, unspecified; Z79.899 Other long term (current) drug therapy; Z88.1 Allergy status to other antibiotic agents; Z88.2 Allergy status to sulfonamides; Z88.6 Allergy status to analgesic agent; Z88.0 Allergy status to penicillin; Z91.52 Personal history of nonsuicidal self-harm; Z88.8 Allergy status to other drugs, medicaments and biological substances; Z91.010 Allergy to peanuts; Z91.040 Latex allergy status; Z91.018 Allergy to other foods; Z86.16 Personal history of COVID-19; Z91.51 Personal history of suicidal behavior; Z81.8 Family history of other mental and behavioral disorders

== ENCOUNTER → 2023-12-15 | Outpatient (CLI) | payer MEDICAID ==
[~2023-12-15] MED LIST changes: +NICO14PA TD; +OLAN5ZYD PO
== END ==
LOC: M WUC 13:29
PROVIDERS: ATTEND Physician Assistant
DX: M76.51 Patellar tendinitis, right knee (principal)

== ENCOUNTER → 2024-03-01 | Outpatient (REF) | payer MEDICAID ==
[2024-03-01 17:40] LABS: ALBUMIN 3.3 G/DL (3.2-5.2); ALKALINE PHOSPHATASE 71 U/L (46-116); ALT/SGPT 27 U/L (7.0-40); AST/SGOT 14 U/L (<34); BILIRUBIN,TOTAL 0.7 MG/DL (0.3-1.2); BLOOD UREA NITROGEN 12 MG/DL (9-23); CALCIUM LEVEL 9.2 MG/DL (8.5-10.1); CARBON DIOXIDE LEVEL 25 MMOL/L (20-31); CHLORIDE LEVEL 109 MMOL/L (98-107); CREATININE FOR GFR 0.95 MG/DL (0.55-1.30); GLOMERULAR FILTRATION RATE > 60.0 (>60); GLUCOSE, FASTING 110 MG/DL (60-100); POTASSIUM SERUM 3.9 MMOL/L (3.5-5.1); SODIUM LEVEL 142 MMOL/L (136-145); THYROID STIMULATING HORMONE 0.902 uIU/ML (0.55-4.78); TOTAL PROTEIN 6.5 G/DL (5.7-8.2)
[2024-03-01 17:41] LABS: TOTAL 25(OH) VITAMIN D 21.6 NG/ML (20.0-100.0)
[2024-03-01 18:13] LABS: HEMOGLOBIN A1c 4.8 % (4.0-6.0)
== END ==
LOC: M LAB REF 16:47
PROVIDERS: ATTEND Nurse Practitioner Family
DX: E66.01 Morbid (severe) obesity due to excess calories (principal); E78.5 Hyperlipidemia, unspecified; E55.9 Vitamin D deficiency, unspecified

== ENCOUNTER 2024-07-10 05:06 | Observation (INO) | payer MEDICAID, OTHER ==
[~2024-07-10] VITALS: Ht 172.7 cm; Wt 156.4 kg
[2024-07-10] MEDS ORDERED: LIDOCAINE 1% MDV 20ML VIAL As Ordered ONE (05:21)
[2024-07-10] MEDS ORDERED: LIDOCAINE 2% W/EPINEPHRINE 20ML VIAL **PRES FREE As Ordered ONE (05:23)
[2024-07-10] MEDS: NS (Normal Saline) 0.9% 1,000 ML IV ONE ×2 (05:24→06:32)
[2024-07-10] MEDS: METOCLOPRAMIDE INJ 10MG/2ML VIAL IV ONE (05:25)
[2024-07-10] MEDS ORDERED: ISOVUE-370 76% 100ML VIAL As Ordered ONE (05:36)
[2024-07-10 05:43] LABS: BASO % 0.3 % (0.0-1.0); EOS # 0.1 10^3/uL (0.0-0.5); EOS % 1.1 % (0.0-3.0); HEMATOCRIT 44.1 % (36.0-47.0); HEMOGLOBIN 14.6 g/dl (12.0-15.5); LYMPH # 3.4 10^3/uL (1.5-5.0); LYMPH % 29.7 % (24.0-44.0); MEAN CORPUSCULAR HEMOGLOBIN 31.3 pg (27.0-33.0); MEAN CORPUSCULAR HGB CONC 33.1 g/dl (32.0-36.5); MEAN CORPUSCULAR VOLUME 94.6 fl (80.0-96.0); MONO # 0.9 10^3/uL (0.0-0.8); MONO % 7.4 % (2.0-8.0); NEUTROPHILS # 7.1 10^3/uL (1.5-8.5); NEUTROPHILS % 61.2 % (36.0-66.0); PLATELET COUNT, AUTOMATED 274 10^3/uL (150-450); RED BLOOD COUNT 4.66 10^6/uL (4.00-5.40); WHITE BLOOD COUNT 11.5 10^3/uL (4.0-10.0)
[2024-07-10 06:07] LABS: BLOOD UREA NITROGEN 12 MG/DL (9-23); CALCIUM LEVEL 9.1 MG/DL (8.5-10.1); CARBON DIOXIDE LEVEL 23 MMOL/L (20-31); CHLORIDE LEVEL 107 MMOL/L (98-107); CREATININE FOR GFR 0.91 MG/DL (0.55-1.30); GLOMERULAR FILTRATION RATE > 60.0 (>60); GLUCOSE, FASTING 105 MG/DL (60-100); MAGNESIUM LEVEL 1.8 MG/DL (1.8-2.4); POTASSIUM SERUM 3.8 MMOL/L (3.5-5.1); SALICYLATE LEVEL < 3.0 MG/DL (<30); SODIUM LEVEL 141 MMOL/L (136-145)
[2024-07-10 06:18] LABS: HCG, SERUM QUALITATIVE NEGATIVE (NEGATIVE)
[2024-07-10 07:59] LABS: VALPROIC ACID (DEPAKOTE) < 3.0 UG/ML (50.0-100.0)
[2024-07-10] MEDS: ceFAZolin SOD 1 GM in DEXTROSE 5% (D5W) ADV/MINI-BAG 50 ML IV ONE (08:26)
[2024-07-10] MEDS: BOOSTRIX VACCINE (TETANUS/DIPHTH/ACEL. PERTUSSIS) 0.5ML SYR IM.IMMUN ONE (08:27)
[2024-07-10 08:42] LABS: AMPHETAMINES LEVEL URINE NEGATIVE (NEGATIVE); BARBITURATES URINE NEGATIVE (NEGATIVE); BENZODIAZEPINES URINE NEGATIVE (NEGATIVE); COCAINE METABOLITE URINE NEGATIVE (NEGATIVE); METHADONE URINE NEGATIVE (NEGATIVE); OPIATES URINE NEGATIVE (NEGATIVE); PHENCYCLIDINE URINE NEGATIVE (NEGATIVE)
[2024-07-10 08:45] LABS: CANNABINOIDS URINE POSITIVE (NEGATIVE)
[2024-07-10] MEDS ORDERED: ENOXAPARIN 40MG/0.4ML SYRINGE (J1650 PER 10MG) SC SCH (09:00)
[2024-07-10] MEDS ORDERED: BUSP10TA PO (10:08)
[2024-07-10] MEDS ORDERED: DIVA250T7 PO (10:08)
[2024-07-10] MEDS ORDERED: NITR100C2 PO (10:08)
[2024-07-10] MEDS ORDERED: SERT50TA29 PO (10:08)
[2024-07-10] MEDS ORDERED: METF500T13 PO (10:17)
[2024-07-10] MEDS ORDERED: HOME MED LIST COMPLETE! XX SCH (10:20)
[2024-07-10] MEDS ORDERED: DEXTROSE 50% 50ML SYRINGE IV PRN (11:35)
[2024-07-10] MEDS ORDERED: LORazepam 2 MG TAB PO PRN (11:35)
[2024-07-10] MEDS ORDERED: GLUCOSE 4 GM CHEW PO PRN (11:35)
[2024-07-10] MEDS ORDERED: GLUCAGON INJ 1MG VIAL SC PRN (11:35)
[2024-07-10] MEDS: INSULIN LISPRO (NovoLOG) PER UNIT SC SCH ×2 (12:00→21:00)
[2024-07-10] MEDS: FOLIC ACID 1MG TAB PO SCH (12:31)
[2024-07-10] MEDS: MULTIVITAMINS/MINERALS THERAP 1 TAB PO SCH (12:31)
[2024-07-10] MEDS: THIAMINE 100 MG TAB PO SCH (12:31)
[2024-07-10] MEDS: CEPHALEXIN 500 MG CAP PO SCH (12:34)
[2024-07-10 15:37] VITALS: BP 138/69
[2024-07-10 15:39] VITALS: BP 138/69; TEMP 98.1; O2SAT 98
[2024-07-10] MEDS ORDERED: oxyCODONE 5MG TAB PO PRN ×2 (16:40)
[2024-07-10] MEDS ORDERED: traMADol 50 MG TAB PO PRN (17:05)
[2024-07-10] MEDS: RIVAROXABAN 10MG TAB (XARELTO) PO SCH (18:09)
[2024-07-10] MEDS: traMADol 50 MG TAB PO PRN (18:10)
[2024-07-10 20:38] VITALS: BP 142/72; TEMP 99.5; O2SAT 98
[2024-07-10 23:39] VITALS: BP 142/72
[2024-07-11] MEDS: CLINDAMYCIN 150MG CAPSULE PO SCH (00:52)
[2024-07-11 04:00] VITALS: BP 132/72; TEMP 97.5; O2SAT 97
[2024-07-11 06:00] VITALS: BP 132/72
[2024-07-11 07:00] LABS: HEMATOCRIT 38.2 % (36.0-47.0); MEAN CORPUSCULAR VOLUME 93.9 fl (80.0-96.0); PLATELET COUNT, AUTOMATED 236 10^3/uL (150-450); RED BLOOD COUNT 4.07 10^6/uL (4.00-5.40)
[2024-07-11 07:15] LABS: HEMOGLOBIN 12.6 g/dl (12.0-15.5)
[2024-07-11 07:43] LABS: BLOOD UREA NITROGEN 8 MG/DL (9-23); CALCIUM LEVEL 8.6 MG/DL (8.5-10.1); CARBON DIOXIDE LEVEL 25 MMOL/L (20-31); CHLORIDE LEVEL 106 MMOL/L (98-107); CREATININE FOR GFR 0.76 MG/DL (0.55-1.30); GLOMERULAR FILTRATION RATE > 60.0 (>60); GLUCOSE, FASTING 93 MG/DL (60-100); POTASSIUM SERUM 3.7 MMOL/L (3.5-5.1); SODIUM LEVEL 138 MMOL/L (136-145)
[2024-07-11] MEDS: MUPIROCIN 2% OINT 22 GM TUBE TOP SCH (09:33)
[2024-07-11] MEDS ORDERED: VALPROIC ACID 250MG CAP PO ONE (10:40)
[2024-07-11 12:00] VITALS: BP 128/67; TEMP 99.2; O2SAT 96
[2024-07-11] MEDS ORDERED: CLIN150C17 PO (12:07)
[2024-07-11 14:01] VITALS: BP 110/74
[2024-07-11 20:30] VITALS: BP 114/62; TEMP 99.4; O2SAT 98
[2024-07-11] MEDS: DIVALPROEX 250MG *ER* TAB PO ONE (20:59)
== END 2024-07-11 21:14 ==
LOC: EDBD 05:06 → M ED 05:06 → M ED INP 05:07 → M MS5PR 15:05
PROVIDERS: ADMIT Internal Medicine; ATTEND Internal Medicine
DX: S51.812A Laceration without foreign body of left forearm, initial encounter (principal); E11.9 Type 2 diabetes mellitus without complications; T14.91XA Suicide attempt, initial encounter; X78.8XXA Intentional self-harm by other sharp object, initial encounter; Y92.9 Unspecified place or not applicable; S81.811A Laceration without foreign body, right lower leg, initial encounter; F31.9 Bipolar disorder, unspecified; F43.10 Post-traumatic stress disorder, unspecified; F41.1 Generalized anxiety disorder; F10.220 Alcohol dependence with intoxication, uncomplicated; F60.3 Borderline personality disorder; F17.200 Nicotine dependence, unspecified, uncomplicated; G40.909 Epilepsy, unspecified, not intractable, without status epilepticus; E66.9 Obesity, unspecified; Z79.84 Long term (current) use of oral hypoglycemic drugs; Z79.899 Other long term (current) drug therapy; Z91.010 Allergy to peanuts; Z91.018 Allergy to other foods; Z91.040 Latex allergy status; Z88.0 Allergy status to penicillin; Z88.1 Allergy status to other antibiotic agents; Z88.2 Allergy status to sulfonamides; Z88.5 Allergy status to narcotic agent; Z88.6 Allergy status to analgesic agent; Z88.8 Allergy status to other drugs, medicaments and biological substances
CPT/HCPCS: 13121; 13122; 36415; 71045; 73206; 73700; 80047; 80048; 80143; 80164; 80307; 82077; 82140; 83605; 83735; 84703; 85025; 85027; 87641; 90471; 90715; 93005; 96374; 96375; 99285; J0690; J2765; Q9967

== ENCOUNTER 2024-07-11 17:10 | Inpatient (IN) | payer MEDICAID, OTHER ==
[~2024-07-11] VITALS: Ht 172.7 cm; Wt 156.4 kg
[~2024-07-11 17:10] MED LIST changes: +BUSP10TA PO; +DIVA250T7 PO; +METF500T13 PO; +NITR100C2 PO
[2024-07-11] MEDS ORDERED: MAALOX 30 ML SUSP *UDC PO PRN (20:30)
[2024-07-11] MEDS ORDERED: MOM 30ML SUSPENSION UDC PO PRN (20:30)
[2024-07-11] MEDS: CLINDAMYCIN 150MG CAPSULE PO SCH (21:00)
[2024-07-11] MEDS: MUPIROCIN 2% OINT 22 GM TUBE TOP SCH (21:00)
[2024-07-11 22:00] VITALS: BP 131/75; TEMP 97; O2SAT 95
[2024-07-11] MEDS: traZODone 50 MG TAB PO PRN (22:25)
[2024-07-11] MEDS: traMADol 50 MG TAB PO PRN (22:26)
[2024-07-12 06:13] VITALS: BP 118/67; TEMP 98.6; O2SAT 100
[2024-07-12] MEDS: NICOTINE 14 MG/24 HR TRANSDERMAL TD SCH (09:00)
[2024-07-12] MEDS ORDERED: GLUCOSE 4 GM CHEW PO PRN (16:50)
[2024-07-12] MEDS ORDERED: DEXTROSE 50% 50ML SYRINGE IV PRN (16:50)
[2024-07-12] MEDS ORDERED: GLUCAGON INJ 1MG VIAL SC PRN (16:50)
[2024-07-12 17:11] VITALS: BP 131/59; TEMP 97.7; O2SAT 99
[2024-07-12] MEDS: INSULIN LISPRO (NovoLOG) PER UNIT SC SCH ×2 (17:30→21:00)
[2024-07-13 06:39] VITALS: BP 135/73; TEMP 98.6; O2SAT 100
[2024-07-13] MEDS: metFORMIN (GLUCOPHAGE) 500MG TAB PO SCH (08:32)
[2024-07-13] MEDS: buPROPion (WELLBUTRIN SR) 100 MG SR TAB PO SCH (08:32)
[2024-07-13] MEDS: SERTRALINE HCL 50 MG TAB PO SCH (08:33)
[2024-07-13] MEDS: busPIRone 10 MG TAB PO SCH (08:33)
[2024-07-13 15:17] VITALS: BP 115/73; TEMP 97.8; O2SAT 100
[2024-07-13] MEDS: traZODone 100 MG TAB PO SCH (20:28)
[2024-07-13] MEDS: PRAZOSIN 1 MG CAP PO SCH (20:30)
[2024-07-13] MEDS: DIVALPROEX 250MG *ER* TAB PO SCH (20:31)
[2024-07-14 06:30] VITALS: BP 116/56; TEMP 98; O2SAT 100
[2024-07-15 06:42] VITALS: BP 120/65; TEMP 98.2; O2SAT 94
[2024-07-15 14:50] VITALS: BP 117/78; TEMP 97; O2SAT 99
[2024-07-15] MEDS: hydrOXYzine 50 MG TAB PO PRN (20:43)
[2024-07-15] MEDS: LORazepam 1 MG TAB PO PRN (20:43)
[2024-07-15] MEDS: CEPHALEXIN 500 MG CAP PO SCH (20:44)
[2024-07-16 06:33] VITALS: BP 105/56; TEMP 97.6; O2SAT 96
[2024-07-16 16:23] VITALS: BP 120/61; TEMP 97.9; O2SAT 99
[2024-07-17 07:02] VITALS: BP 100/56; TEMP 96.9; O2SAT 90
[2024-07-17 14:57] VITALS: BP 120/75; TEMP 97.5; O2SAT 99
[2024-07-17 20:04] VITALS: BP 146/80
[2024-07-18 06:31] VITALS: BP 121/59; TEMP 97.3; O2SAT 98
== END 2024-07-18 13:38 | disposition home or self-care (01) | DRG 752 ==
LOC: EEVIPCON 21:19 → M PSY 21:19
PROVIDERS: ADMIT Psychiatry & Neurology Psychiatry; ATTEND Psychiatry & Neurology Psychiatry
DX: F60.3 Borderline personality disorder (principal); S81.811A Laceration without foreign body, right lower leg, initial encounter; F32.9 Major depressive disorder, single episode, unspecified; F43.10 Post-traumatic stress disorder, unspecified; F41.1 Generalized anxiety disorder; E11.9 Type 2 diabetes mellitus without complications; F17.210 Nicotine dependence, cigarettes, uncomplicated; Z79.84 Long term (current) use of oral hypoglycemic drugs; Z79.899 Other long term (current) drug therapy; Z88.0 Allergy status to penicillin; Z62.810 Personal history of physical and sexual abuse in childhood; Z88.1 Allergy status to other antibiotic agents; Z88.6 Allergy status to analgesic agent; Z88.5 Allergy status to narcotic agent; Z88.8 Allergy status to other drugs, medicaments and biological substances; Z91.010 Allergy to peanuts; Z91.018 Allergy to other foods; Z91.040 Latex allergy status; S51.812A Laceration without foreign body of left forearm, initial encounter; X78.8XXA Intentional self-harm by other sharp object, initial encounter; Y92.009 Unspecified place in unspecified non-institutional (private) residence as the place of occurrence of the external cause; Y93.9 Activity, unspecified; Y99.8 Other external cause status

== ENCOUNTER → 2024-09-29 | Outpatient (CLI) | payer MEDICAID | LOC: M LAB 14:56 | PROVIDERS: ATTEND Physician Assistant | DX: S81.801A Unspecified open wound, right lower leg, initial encounter (principal); W18.30XA Fall on same level, unspecified, initial encounter; Y92.009 Unspecified place in unspecified non-institutional (private) residence as the place of occurrence of the external cause ==

== ENCOUNTER 2024-11-06 09:10 | Emergency (ER) | payer OTHER ==
[~2024-11-06] VITALS: Ht 172.7 cm; Wt 164.8 kg
[~2024-11-06 09:10] MED LIST changes: -BUPR1TAB56 PO; +BUPR200T45 PO
[2024-11-06] MEDS ORDERED: VRAY1.5C (09:41)
[2024-11-06 10:27] LABS: BASO % 0.3 % (0.0-1.0); EOS # 0.3 10^3/uL (0.0-0.5); EOS % 2.2 % (0.0-3.0); HEMATOCRIT 43.8 % (36.0-47.0); HEMOGLOBIN 14.3 g/dl (12.0-15.5); LYMPH # 3.3 10^3/uL (1.5-5.0); MEAN CORPUSCULAR HEMOGLOBIN 30.2 pg (27.0-33.0); MEAN CORPUSCULAR HGB CONC 32.6 g/dl (32.0-36.5); MEAN CORPUSCULAR VOLUME 92.6 fl (80.0-96.0); MONO # 0.7 10^3/uL (0.0-0.8); MONO % 6.3 % (2.0-8.0); NEUTROPHILS # 7.3 10^3/uL (1.5-8.5); NEUTROPHILS % 62.9 % (36.0-66.0); PLATELET COUNT, AUTOMATED 265 10^3/uL (150-450); RED BLOOD COUNT 4.73 10^6/uL (4.00-5.40); WHITE BLOOD COUNT 11.6 10^3/uL (4.0-10.0)
[2024-11-06 10:39] LABS: ERYTHROCYTE SEDIMENTATION RATE 39 mm/hr (0-20)
[2024-11-06 10:49] LABS: C REACTIVE PROTEIN QUANTITATIV 0.51 MG/DL (<1.0)
[2024-11-06 10:50] LABS: BLOOD UREA NITROGEN 13 MG/DL (9-23); CALCIUM LEVEL 8.8 MG/DL (8.5-10.1); CARBON DIOXIDE LEVEL 24 MMOL/L (20-31); CHLORIDE LEVEL 104 MMOL/L (98-107); CREATININE FOR GFR 0.77 MG/DL (0.55-1.30); GLOMERULAR FILTRATION RATE > 90.0 (>60); GLUCOSE, FASTING 108 MG/DL (60-100); POTASSIUM SERUM 4.2 MMOL/L (3.5-5.1); SODIUM LEVEL 139 MMOL/L (136-145)
[2024-11-06 10:55] VITALS: TEMP 98.5
[2024-11-06] MEDS: DOXYCYCLINE HYCLATE 100MG TABLET PO ONE (11:45)
[2024-11-06] MEDS ORDERED: DOXY-441 PO (11:47)
[2024-11-06 11:51] VITALS: BP 132/64; O2SAT 95
== END 2024-11-06 12:03 | disposition home or self-care (01) ==
LOC: M ED 09:10
DX: S81.801A Unspecified open wound, right lower leg, initial encounter (principal); Y92.9 Unspecified place or not applicable; Y93.9 Activity, unspecified; Y99.9 Unspecified external cause status; Z88.1 Allergy status to other antibiotic agents; Z88.2 Allergy status to sulfonamides; Z88.6 Allergy status to analgesic agent; Z91.010 Allergy to peanuts; Z79.84 Long term (current) use of oral hypoglycemic drugs; Z79.899 Other long term (current) drug therapy

== ENCOUNTER → 2025-01-25 | Outpatient (REF) | payer OTHER ==
[~2025-01-25] MED LIST changes: -DEPA250T32 PO; +DIVA-65 PO; +DOXY-441 PO; +VRAY1.5C PO
== END ==
LOC: M LAB REF 11:56
PROVIDERS: ATTEND Physician Assistant
DX: J06.9 Acute upper respiratory infection, unspecified (principal)